=== PATIENT | male | born 1970 | race African-American/Black ===

== ENCOUNTER 2016-11-03 13:21 | Inpatient (IN) | payer MEDICARE, MEDICAID ==
[~2016-11-03] VITALS: Ht 170.2 cm; Wt 104.3 kg
[~2016-11-03 13:21] MED LIST: ALPR0.2582 PO; CALC0.253 PO; CINA30 PO; DIPH25CA83 PO; FOLI-43 PO; GABA-529 PO; METH500T PO; OMEP20CA10 PO; ROPI0.5T PO; SEVE800T8 PO; ZOLP5TAB8 PO; [UNRECOGNIZED DRUG - OTHER]
[2016-11-03 14:42] LABS: BASOPHILS % 0.5 % (0.0-2.0); EOSINOPHILS % 0.1 % (0.0-5.0); HEMATOCRIT. 48.5 % (42.0-52.0); HEMOGLOBIN. 15.4 g/dL (14.0-18.0); LYMPHOCYTES % 10.1 % (20.0-50.0); MEAN CORPUSCULAR HEMOGLOBIN 26.3 pg (28.0-32.0); MEAN CORPUSCULAR VOLUME 82.4 fL (80.0-94.0); MEAN PLATELET VOLUME 9.6 fl (7.4-10.4); MONOCYTES % 9.4 % (2.0-8.0); NEUTROPHILS % 79.9 % (40.0-76.0); PLATELET 154 x1000/uL (130-400); RED BLOOD CELL COUNT 5.88 mill/uL (4.7-6.1); RED CELL DISTRIBUTION WIDTH 15.5 % (11.6-14.6)
[2016-11-03 14:51] LABS: INR 1.1; PROTHROMBIN TIME 11.5 sec
[2016-11-03 15:00] LABS: CARBON DIOXIDE 25 mEq/L (21-32); CHLORIDE 99 mEq/L (98-107); TROPONIN I < 0.02 ng/mL (0.00-0.04)
[2016-11-03] MEDS ORDERED: SODIUM CHLORIDE 0.9% 500 ML IV NR (16:12)
[2016-11-03] MEDS ORDERED: VANCOMYCIN 1,500 MG in DEXT 5% WATER 250 ML IV ONE (16:45)
[2016-11-03] MEDS ORDERED: PIPERACILLIN SODIUM/TAZOBACTAM 4.5 G in DEXT 5% WATER 100 ML IV SCH (16:45)
[2016-11-03] MEDS ORDERED: LORAZEPAM 2MG/ML CPJ IV ONE (20:15)
[2016-11-03] MEDS ORDERED: ONDANSETRON HCL 4MG/2ML VIAL IV PRN (20:45)
[2016-11-03] MEDS ORDERED: DOCUSATE SODIUM 100MG CAPSULE PO PRN (20:45)
[2016-11-03] MEDS ORDERED: CLONIDINE 0.1MG TABLET PO PRN (20:45)
[2016-11-03] MEDS ORDERED: LORAZEPAM 2MG/ML CPJ IV PRN (20:45)
[2016-11-03] MEDS ORDERED: DIPHENHYDRAMINE 50MG/ML VIAL IV PRN (20:45)
[2016-11-03] MEDS ORDERED: ENOXAPARIN 40MG/0.4ML SYR SUBCUT SCH (20:45)
[2016-11-03] MEDS ORDERED: GUAIFENESIN 200MG/10ML SUGAR FREE UDC PO PRN (20:45)
[2016-11-03] MEDS ORDERED: MAGNESIUM/ALUMINUM HYDROXIDE/SIMETHICONE 30ML UDC PO PRN (20:45)
[2016-11-03] MEDS ORDERED: ACETAMINOPHEN 325MG TABLET PO PRN (20:45)
[2016-11-03] MEDS ORDERED: IPRATROPIUM/ALBUTEROL 0.5-3(2.5)MG/3ML NEB INH PRN (20:45)
[2016-11-03] MEDS ORDERED: NA PHOS,M-B/NA PHOS,DI-BA ENEMA 118ML PR PRN (20:45)
[2016-11-03] MEDS ORDERED: HYDROMORPHONE HCL/PF 2MG/ML CPJ IV PRN (20:45)
[2016-11-03 22:17] LABS: CHLORIDE 101 mEq/L (98-107)
[2016-11-03 22:24] LABS: CARBON DIOXIDE 23 mEq/L (21-32)
[2016-11-03 22:26] LABS: TROPONIN I < 0.02 ng/mL (0.00-0.04)
[2016-11-03] MEDS ORDERED: SODIUM CHLORIDE 0.9% 1,000 ML IV ONE (23:00)
[2016-11-04] VITALS (7 sets, daily range): BP systolic 87–135; BP diastolic 41–86
[2016-11-04] MEDS: HYDROCODONE/ACETAMINOPHEN 5/325MG TABLET PO PRN (02:56)
[2016-11-04] MEDS: OMEPRAZOLE 20MG CAPSULE EXTENDED RELEASE PO SCH (06:22)
[2016-11-04] MEDS: CALCITRIOL 0.25MCG CAPSULE PO SCH (06:22)
[2016-11-04] MEDS: FOLIC ACID 1MG TABLET PO SCH (06:22)
[2016-11-04 06:33] LABS: HEMATOCRIT. 45.1 % (42.0-52.0); HEMOGLOBIN. 14.6 g/dL (14.0-18.0); MEAN CORPUSCULAR HEMOGLOBIN 26.9 pg (28.0-32.0); MEAN CORPUSCULAR VOLUME 82.9 fL (80.0-94.0); PLATELET 128 x1000/uL (130-400); RED BLOOD CELL COUNT 5.44 mill/uL (4.7-6.1); RED CELL DISTRIBUTION WIDTH 15.7 % (11.6-14.6)
[2016-11-04 08:00] LABS: CARBON DIOXIDE 23 mEq/L (21-32); CHLORIDE 104 mEq/L (98-107); HDL CHOLESTEROL 39 mg/dL (40-59); LDL CHOLESTEROL 102 mg/dL (5-100); TROPONIN I < 0.02 ng/mL (0.00-0.04)
[2016-11-04] MEDS: SEVELAMER CARBONATE 800 MG TABLET PO SCH ×3 (08:16→17:01)
[2016-11-04] MEDS: ENOXAPARIN 30MG/0.3ML SYR SUBCUT SCH (08:16)
[2016-11-04] MEDS: ASPIRIN 81MG EC TABLET PO SCH (08:16)
[2016-11-04] MEDS: CINACALCET HCL 30MG TABLET PO SCH (08:31)
[2016-11-04 13:53] LABS: PLATELET ESTIMATE NORMAL
[2016-11-04 16:52] LABS: CREATINE KINASE 34 IU/L (39-308); CREATINE KINASE MB FRACTION 0.6 ng/mL (0.5-3.6); HDL CHOLESTEROL 40 mg/dL (40-59); LDL CHOLESTEROL 100 mg/dL (5-100); TROPONIN I < 0.02 ng/mL (0.00-0.04)
[2016-11-04] MEDS ORDERED: GABAPENTIN 100MG CAPSULE PO SCH (21:00)
[2016-11-05] VITALS (8 sets, daily range): BP systolic 90–130; BP diastolic 26–69
[2016-11-05 01:18] LABS: CREATINE KINASE 25 IU/L (39-308); CREATINE KINASE MB FRACTION < 0.5 ng/mL (0.5-3.6); TROPONIN I < 0.02 ng/mL (0.00-0.04)
[2016-11-05] MEDS: CALCITRIOL 0.25MCG CAPSULE PO SCH (06:27)
[2016-11-05] MEDS: FOLIC ACID 1MG TABLET PO SCH (06:27)
[2016-11-05] MEDS: OMEPRAZOLE 20MG CAPSULE EXTENDED RELEASE PO SCH (06:27)
[2016-11-05] MEDS: ASPIRIN 81MG EC TABLET PO SCH (08:31)
[2016-11-05] MEDS: CINACALCET HCL 30MG TABLET PO SCH (08:31)
[2016-11-05] MEDS: SEVELAMER CARBONATE 800 MG TABLET PO SCH ×2 (08:32→13:34)
[2016-11-05] MEDS: ENOXAPARIN 30MG/0.3ML SYR SUBCUT SCH (08:34)
[2016-11-05] MEDS: HYDROCODONE/ACETAMINOPHEN 5/325MG TABLET PO PRN (08:35)
[2016-11-05 09:46] LABS: BASOPHILS % 0.8 % (0.0-2.0); EOSINOPHILS % 1.8 % (0.0-5.0); HEMATOCRIT. 42.4 % (42.0-52.0); HEMOGLOBIN. 13.4 g/dL (14.0-18.0); LYMPHOCYTES % 30.9 % (20.0-50.0); MEAN CORPUSCULAR HEMOGLOBIN 26.4 pg (28.0-32.0); MEAN CORPUSCULAR VOLUME 83.3 fL (80.0-94.0); MEAN PLATELET VOLUME 10.8 fl (7.4-10.4); MONOCYTES % 11.2 % (2.0-8.0); NEUTROPHILS % 55.3 % (40.0-76.0); PLATELET 157 x1000/uL (130-400); RED BLOOD CELL COUNT 5.08 mill/uL (4.7-6.1); RED CELL DISTRIBUTION WIDTH 15.7 % (11.6-14.6)
[2016-11-05 10:26] LABS: CARBON DIOXIDE 23 mEq/L (21-32); CHLORIDE 106 mEq/L (98-107); CREATINE KINASE 27 IU/L (39-308); CREATINE KINASE MB FRACTION 0.8 ng/mL (0.5-3.6); TROPONIN I < 0.02 ng/mL (0.00-0.04)
== END 2016-11-05 15:40 | disposition home or self-care (01) | DRG 70 ==
LOC: ER 13:21 → 6WST 17:57 → ENRESERV 20:49
PROVIDERS: ADMIT Internal Medicine; ATTEND Internal Medicine
DX: G93.41 Metabolic encephalopathy (principal); N18.6 End stage renal disease; I12.0 Hypertensive chronic kidney disease with stage 5 chronic kidney disease or end stage renal disease; E87.2 Acidosis; D64.9 Anemia, unspecified; E16.2 Hypoglycemia, unspecified; I25.10 Atherosclerotic heart disease of native coronary artery without angina pectoris; W19.XXXA Unspecified fall, initial encounter; M19.90 Unspecified osteoarthritis, unspecified site; G89.29 Other chronic pain; M54.9 Dorsalgia, unspecified; G62.9 Polyneuropathy, unspecified; I95.9 Hypotension, unspecified; Y92.009 Unspecified place in unspecified non-institutional (private) residence as the place of occurrence of the external cause; Z99.2 Dependence on renal dialysis
CPT/HCPCS: 36415; 70450; 71010; 80048; 80053; 80061; 82550; 82553; 82962; 83036; 83605; 83880; 83970; 84439; 84443; 84484; 85025; 85379; 85610; 87040; 93005; 93306; 96374; 97162; 99291; J1650; J2060; J2543; J3370; J7030; J7060

== ENCOUNTER 2016-11-15 05:37 | Emergency (ER) | payer MEDICARE, MEDICAID ==
[~2016-11-15] VITALS: Ht 172.7 cm; Wt 100.0 kg
[2016-11-15] MEDS ORDERED: HYDROCODONE/ACETAMINOPHEN 5/325MG TABLET PO ONE (06:30)
[2016-11-15 09:34] VITALS: BP 118/72
[2016-11-15 09:47] LABS: BASOPHILS % 1.1 % (0.0-2.0); EOSINOPHILS % 4.2 % (0.0-5.0); HEMATOCRIT. 38.3 % (42.0-52.0); HEMOGLOBIN. 12.1 g/dL (14.0-18.0); LYMPHOCYTES % 31.6 % (20.0-50.0); MEAN CORPUSCULAR HEMOGLOBIN 26.4 pg (28.0-32.0); MEAN CORPUSCULAR VOLUME 83.6 fL (80.0-94.0); MEAN PLATELET VOLUME 9.6 fl (7.4-10.4); MONOCYTES % 9.8 % (2.0-8.0); NEUTROPHILS % 53.3 % (40.0-76.0); PLATELET 124 x1000/uL (130-400); RED BLOOD CELL COUNT 4.58 mill/uL (4.7-6.1); RED CELL DISTRIBUTION WIDTH 16.1 % (11.6-14.6)
[2016-11-15 09:50] LABS: PARTIAL THROMBOPLASTIN TIME 29.5 sec (24.0-34.0); PROTHROMBIN TIME 10.9 sec
[2016-11-15 09:53] LABS: C REACTIVE PROTEIN QUANT 3.7 mg/L (0.0-3.0); PHOSPHORUS 5.3 mg/dL (2.5-4.9)
== END 2016-11-15 10:57 | disposition left against medical advice (07) ==
LOC: ER 05:44
DX: N17.9 Acute kidney failure, unspecified (principal); I12.9 Hypertensive chronic kidney disease with stage 1 through stage 4 chronic kidney disease, or unspecified chronic kidney disease; N18.9 Chronic kidney disease, unspecified; M19.90 Unspecified osteoarthritis, unspecified site; D64.9 Anemia, unspecified; E78.5 Hyperlipidemia, unspecified; Z99.2 Dependence on renal dialysis
CPT/HCPCS: 36415; 72131; 80048; 83735; 84100; 85025; 85610; 85651; 85730; 86140; 99285

== ENCOUNTER 2017-02-28 07:56 | Emergency (ER) | payer MEDICARE, MEDICAID ==
[~2017-02-28] VITALS: Ht 177.8 cm; Wt 128.0 kg
[~2017-02-28 07:56] MED LIST changes: +ALPR0.25 PO; -ALPR0.2582 PO
[2017-02-28 08:51] LABS: BASOPHILS % 0.3 % (0.0-2.0); EOSINOPHILS % 0.1 % (0.0-5.0); HEMATOCRIT. 38.4 % (42.0-52.0); HEMOGLOBIN. 12.7 g/dL (14.0-18.0); LYMPHOCYTES % 8.1 % (20.0-50.0); MEAN CORPUSCULAR HEMOGLOBIN 27.9 pg (28.0-32.0); MEAN CORPUSCULAR VOLUME 84.8 fL (80.0-94.0); MEAN PLATELET VOLUME 8.6 fl (7.4-10.4); MONOCYTES % 8.9 % (2.0-8.0); NEUTROPHILS % 82.6 % (40.0-76.0); PLATELET 206 x1000/uL (130-400); RED BLOOD CELL COUNT 4.53 mill/uL (4.7-6.1); RED CELL DISTRIBUTION WIDTH 15.1 % (11.6-14.6)
[2017-02-28 09:02] LABS: CARBON DIOXIDE 21 mEq/L (21-32); CHLORIDE 95 mEq/L (98-107)
[2017-02-28 11:28] VITALS: BP 130/60
== END 2017-02-28 11:28 | disposition home or self-care (01) ==
LOC: ER 08:10
DX: S00.03XA Contusion of scalp, initial encounter (principal); R56.9 Unspecified convulsions; I12.0 Hypertensive chronic kidney disease with stage 5 chronic kidney disease or end stage renal disease; N18.6 End stage renal disease; E87.2 Acidosis; F41.9 Anxiety disorder, unspecified; Z99.2 Dependence on renal dialysis
CPT/HCPCS: 36415; 70450; 80053; 82962; 85025; 99291

== ENCOUNTER 2017-07-02 04:15 | Inpatient (IN) | payer MEDICARE, MEDICAID ==
[2017-07-02] VITALS (10 sets, daily range): BP systolic 105–136; BP diastolic 53–81
[~2017-07-02] VITALS: Ht 167.6 cm; Wt 120.7 kg
[2017-07-02 05:30] LABS: BASOPHILS % 0.6 % (0.0-2.0); EOSINOPHILS % 3.6 % (0.0-5.0); HEMATOCRIT. 35.4 % (42.0-52.0); HEMOGLOBIN. 11.5 g/dL (14.0-18.0); LYMPHOCYTES % 31.9 % (20.0-50.0); MEAN CORPUSCULAR HEMOGLOBIN 28.3 pg (28.0-32.0); MEAN CORPUSCULAR VOLUME 87.2 fL (80.0-94.0); MEAN PLATELET VOLUME 10.5 fl (7.4-10.4); MONOCYTES % 7.3 % (2.0-8.0); NEUTROPHILS % 56.6 % (40.0-76.0); PLATELET 182 x1000/uL (130-400); RED BLOOD CELL COUNT 4.06 mill/uL (4.7-6.1); RED CELL DISTRIBUTION WIDTH 15.9 % (11.6-14.6)
[2017-07-02 05:35] LABS: PROTHROMBIN TIME 10.7 sec (9.4-11.6)
[2017-07-02 05:39] LABS: CHLORIDE 104 mEq/L (98-107)
[2017-07-02] MEDS ORDERED: INSULIN REGULAR (HUMULIN R) 300UNITS/3ML IV ONE (06:30)
[2017-07-02] MEDS ORDERED: SODIUM BICARBONATE 8.4% 1 MEQ/ML 50ML SYR IV ONE (06:30)
[2017-07-02] MEDS ORDERED: CALCIUM GLUCONATE 100MG/ML 10ML VIAL IV ONE (06:30)
[2017-07-02] MEDS ORDERED: DEXTROSE 50% WATER 50ML SYRINGE IV ONE (06:30)
[2017-07-02] MEDS ORDERED: NA PHOS,M-B/NA PHOS,DI-BA ENEMA 118ML PR PRN (06:45)
[2017-07-02] MEDS ORDERED: MAGNESIUM/ALUMINUM HYDROXIDE/SIMETHICONE 30ML UDC PO PRN (06:45)
[2017-07-02] MEDS ORDERED: MORPHINE SULFATE 4 MG/ML CPJ (NOT FOR IM USE) IV PRN (06:45)
[2017-07-02] MEDS ORDERED: CALCIUM GLUCONATE 1000MG in DEXTROSE 5% WATER 50ML IV ONE (06:45)
[2017-07-02] MEDS ORDERED: DOCUSATE SODIUM 100MG CAPSULE PO PRN (06:45)
[2017-07-02] MEDS ORDERED: GUAIFENESIN 200MG/10ML SUGAR FREE UDC PO PRN (06:45)
[2017-07-02] MEDS ORDERED: CLONIDINE 0.1MG TABLET PO PRN (06:45)
[2017-07-02] MEDS ORDERED: ACETAMINOPHEN 325MG TABLET PO PRN (06:45)
[2017-07-02] MEDS ORDERED: LORAZEPAM 2MG/ML CPJ IV PRN (06:45)
[2017-07-02] MEDS ORDERED: HYDROCODONE/ACETAMINOPHEN 5/325MG TABLET PO PRN (06:45)
[2017-07-02] MEDS ORDERED: IPRATROPIUM/ALBUTEROL 0.5-3(2.5)MG/3ML NEB INH PRN (06:45)
[2017-07-02] MEDS ORDERED: ONDANSETRON HCL 4MG/2ML VIAL IV PRN (06:45)
[2017-07-02] MEDS ORDERED: ENOXAPARIN 40MG/0.4ML SYR SUBCUT SCH (09:39)
[2017-07-02] MEDS ORDERED: SODIUM BICARBONATE 4% (2.4MEQ) 5ML VIAL IV ONE (13:17)
[2017-07-02] MEDS ORDERED: LIDOCAINE HCL 1% 20ML VIAL (Pyxis) INJ ONE (13:17)
[2017-07-02 13:23] LABS: T4 FREE 0.72 ng/dL (0.76-1.46)
[2017-07-02] MEDS ORDERED: CEFAZOLIN 1000MG PREMIX 50 ML IV ONE ×2 (13:40→13:45)
[2017-07-02] MEDS ORDERED: FENTANYL CITRATE/PF 50MCG/ML 2ML VIAL IV ONE (13:45)
[2017-07-02] MEDS ORDERED: FENTANYL CITRATE/PF 50MCG/ML 2ML VIAL ONE (13:58)
[2017-07-02] MEDS ORDERED: HEPARIN SODIUM 1,000 UNIT/1ML VIAL IV NR (15:45)
[2017-07-02] MEDS: DIPHENHYDRAMINE 50MG/ML VIAL IV PRN (16:06)
[2017-07-02 16:55] LABS: CHLORIDE 104 mEq/L (98-107)
[2017-07-02 17:00] LABS: CREATINE KINASE 31 IU/L (39-308); CREATINE KINASE MB FRACTION 0.8 ng/mL (0.5-3.6)
[2017-07-02] MEDS ORDERED: ZOLPIDEM TARTRATE 5MG TABLET PO PRN (20:00)
[2017-07-02] MEDS ORDERED: DIPHENHYDRAMINE 25MG CAPSULE PO PRN (20:00)
[2017-07-02] MEDS ORDERED: DOCUSATE SODIUM 250MG CAPSULE PO PRN (20:00)
[2017-07-02] MEDS ORDERED: OMEP40CA34 PO (20:08)
[2017-07-02] MEDS ORDERED: FOLI-43 PO (20:08)
[2017-07-02] MEDS ORDERED: GABA-529 PO (20:08)
[2017-07-02] MEDS ORDERED: DOCU250C87 PO (20:08)
[2017-07-02] MEDS ORDERED: DIPH25CA83 PO (20:08)
[2017-07-02] MEDS ORDERED: ASPI-1159 PO (20:08)
[2017-07-02] MEDS ORDERED: OXYC5CAP12 PO (20:08)
[2017-07-02] MEDS ORDERED: ZOLP5TAB8 PO (20:30)
[2017-07-02] MEDS ORDERED: CINA60 PO (20:30)
[2017-07-02] MEDS ORDERED: MIDO5TAB PO (20:30)
[2017-07-02] MEDS ORDERED: SEVE800T8 PO (20:30)
[2017-07-02] MEDS ORDERED: METH500T PO (20:30)
[2017-07-02] MEDS ORDERED: KEPP500 PO (20:30)
[2017-07-02] MEDS ORDERED: IBUP-2028 PO (20:30)
[2017-07-02] MEDS ORDERED: REQ1 PO (20:30)
[2017-07-02] MEDS ORDERED: IBUP-2029 PO (20:33)
[2017-07-02] MEDS ORDERED: FAMOTIDINE 20MG TABLET PO SCH (21:00)
[2017-07-02] MEDS: LEVETIRACETAM 500MG TABLET PO SCH (21:18)
[2017-07-02] MEDS: FOLIC ACID 1MG TABLET PO SCH (21:18)
[2017-07-02] MEDS: CINACALCET HCL 60MG TABLET PO SCH (21:18)
[2017-07-03] VITALS (8 sets, daily range): BP systolic 83–121; BP diastolic 20–68
[2017-07-03 00:41] LABS: CREATINE KINASE 20 IU/L (39-308); CREATINE KINASE MB FRACTION 0.6 ng/mL (0.5-3.6)
[2017-07-03 06:33] LABS: BASOPHILS % 0.8 % (0.0-2.0); EOSINOPHILS % 4.2 % (0.0-5.0); HEMATOCRIT. 30.1 % (42.0-52.0); HEMOGLOBIN. 9.8 g/dL (14.0-18.0); LYMPHOCYTES % 29.5 % (20.0-50.0); MEAN CORPUSCULAR HEMOGLOBIN 28.2 pg (28.0-32.0); MEAN CORPUSCULAR VOLUME 86.7 fL (80.0-94.0); MEAN PLATELET VOLUME 10.4 fl (7.4-10.4); MONOCYTES % 9.3 % (2.0-8.0); NEUTROPHILS % 56.2 % (40.0-76.0); PLATELET 144 x1000/uL (130-400); RED BLOOD CELL COUNT 3.47 mill/uL (4.7-6.1); RED CELL DISTRIBUTION WIDTH 15.9 % (11.6-14.6)
[2017-07-03 07:13] LABS: CHLORIDE 103 mEq/L (98-107)
[2017-07-03 07:22] LABS: CREATINE KINASE 13 IU/L (39-308); CREATINE KINASE MB FRACTION 0.6 ng/mL (0.5-3.6); HDL CHOLESTEROL 45 mg/dL (40-59); LDL CHOLESTEROL 64 mg/dL (5-100); PHOSPHORUS 6.5 mg/dL (2.5-4.9)
[2017-07-03] MEDS ORDERED: SEVELAMER CARBONATE 800 MG TABLET PO SCH (07:40)
[2017-07-03] MEDS ORDERED: SODIUM POLYSTYRENE SULFONATE 15 G/60 ML BOT PO NR (08:06)
[2017-07-03] MEDS: SEVELAMER CARBONATE 800 MG TABLET PO SCH ×2 (08:34→18:12)
[2017-07-03] MEDS: MIDODRINE HCL 5MG TABLET PO SCH ×2 (08:36→16:05)
[2017-07-03] MEDS ORDERED: MEDICATION NOT ON FORMULARY EA (Omeprazole 40 MG) PO SCH (09:00)
[2017-07-03] MEDS ORDERED: ASPIRIN 81MG EC TABLET PO SCH (09:00)
[2017-07-03] MEDS ORDERED: ROPINIROLE HCL 1MG TABLET PO SCH (09:00)
[2017-07-03] MEDS ORDERED: HEPARIN SODIUM 1,000 UNIT/1ML VIAL IV NR (09:15)
[2017-07-03] MEDS ORDERED: HEPARIN SODIUM 1,000 UNIT/1ML VIAL IV ONE (09:15)
[2017-07-03] MEDS: LEVETIRACETAM 500MG TABLET PO SCH ×2 (09:43→16:04)
[2017-07-03] MEDS: FOLIC ACID 1MG TABLET PO SCH (09:43)
[2017-07-03] MEDS: CINACALCET HCL 60MG TABLET PO SCH (09:44)
[2017-07-03] MEDS: GABAPENTIN 100MG CAPSULE PO SCH ×2 (09:44→16:04)
[2017-07-03] MEDS: METHOCARBAMOL 500MG TABLET PO SCH ×2 (09:45→18:12)
[2017-07-03] MEDS: DIPHENHYDRAMINE 50MG/ML VIAL IV PRN (09:45)
[2017-07-03] MEDS ORDERED: ENOXAPARIN 40MG/0.4ML SYR SUBCUT SCH (16:00)
== END 2017-07-03 20:15 | DRG 314 ==
LOC: ER 04:31 → ENRESERV 08:02 → 8WST 09:23
PROVIDERS: ADMIT Internal Medicine; ATTEND Internal Medicine
PROC: 06H033Z Insertion of Infusion Device into Inferior Vena Cava, Percutaneous Approach (ICD-10-PCS; principal; 2017-07-02)
PROC: B5191ZA Fluoroscopy of Inferior Vena Cava using Low Osmolar Contrast, Guidance (ICD-10-PCS; 2017-07-02)
DX: T82.42XA Displacement of vascular dialysis catheter, initial encounter (principal); N18.6 End stage renal disease; I13.2 Hypertensive heart and chronic kidney disease with heart failure and with stage 5 chronic kidney disease, or end stage renal disease; E46 Unspecified protein-calorie malnutrition; E11.51 Type 2 diabetes mellitus with diabetic peripheral angiopathy without gangrene; E11.22 Type 2 diabetes mellitus with diabetic chronic kidney disease; Z68.41 Body mass index [BMI] 40.0-44.9, adult; D63.8 Anemia in other chronic diseases classified elsewhere; I50.9 Heart failure, unspecified; E87.5 Hyperkalemia; G89.29 Other chronic pain; E66.9 Obesity, unspecified; M54.5 Low back pain; Y83.8 Other surgical procedures as the cause of abnormal reaction of the patient, or of later complication, without mention of misadventure at the time of the procedure; Z79.899 Other long term (current) drug therapy; Z79.82 Long term (current) use of aspirin; Z99.2 Dependence on renal dialysis; Y92.89 Other specified places as the place of occurrence of the external cause
CPT/HCPCS: 36415; 36581; 77001; 80048; 80053; 80061; 82550; 82553; 82962; 83036; 83880; 84100; 84439; 84443; 84484; 85025; 85379; 85610; 93005; 93306; 96374; 96375; 99285; C1750; C1769; J0610; J0690; J1200; J1642; J1644; J1650; J1815; J3010; J3490; J7030; J7040; J7060

== ENCOUNTER 2020-07-13 13:05 | Inpatient (IN) | payer MEDICARE, MEDICAID ==
[~2020-07-13] VITALS: Ht 170.2 cm; Wt 128.8 kg
[~2020-07-13 13:05] MED LIST changes: -ALPR0.25 PO; +ASPI-1497 PO; -CALC0.253 PO; -CINA30 PO; +CINA60 PO; +DOCU250C21 PO; +IBUP-2029 PO; +KEPP500 PO; +MIDO5TAB4 PO; -OMEP20CA10 PO; +OMEP40CA12 PO; +OXYC5CAP19 PO; +REQ1 PO; -ROPI0.5T PO; -[UNRECOGNIZED DRUG - OTHER]
[2020-07-13] MEDS ORDERED: CLINDAMYCIN 600 MG in DEXTROSE 5% WATER 50 ML IV ONE (13:30)
[2020-07-13] MEDS ORDERED: VANCOMYCIN 1 G PREMIX 200 ML IV ONE (13:30)
[2020-07-13] MEDS ORDERED: PIPERACILLIN/TAZ 3.375G PREMIX 50 ML IV ONE (13:30)
[2020-07-13] MEDS ORDERED: SODIUM CHLORIDE 0.9% 1,000 ML IV ONE (13:30)
[2020-07-13] MEDS ORDERED: CLINDAMYCIN 600MG PREMIX 50 ML IV SCH (13:45)
[2020-07-13 14:25] LABS: HEMATOCRIT. 30.4 % (42.0-52.0); HEMOGLOBIN. 9.8 g/dL (14.0-18.0); MEAN CORPUSCULAR HEMOGLOBIN 25.4 pg (28.0-32.0); MEAN CORPUSCULAR VOLUME 78.9 fL (80.0-94.0); PLATELET 165 x1000/uL (130-400); RED BLOOD CELL COUNT 3.85 mill/uL (4.7-6.1); RED CELL DISTRIBUTION WIDTH 18.2 % (11.6-14.6)
[2020-07-13 14:33] LABS: CHLORIDE 92 mEq/L (98-107)
[2020-07-13 14:35] LABS: INR 1.2
[2020-07-13 14:45] LABS: PLATELET ESTIMATE NORMAL
[2020-07-13] MEDS ORDERED: CLONIDINE 0.1MG TABLET PO PRN (17:45)
[2020-07-13] MEDS ORDERED: VANCOMYCIN 1 G PREMIX 200 ML IV NR ×2 (18:00→20:00)
[2020-07-13] MEDS ORDERED: PIPERACILLIN/TAZOBACTAM 3.375 G in DEXTROSE 5% WATER 50 ML IV SCH (18:00)
[2020-07-13] MEDS: HEPARIN 5000 UNITS/ML VIAL SUBCUT SCH (21:00)
[2020-07-13 21:55] VITALS: BP 149/96
[2020-07-13] MEDS ORDERED: CEFEPIME 2,000 MG in DEXT 5% WATER 100 ML IV SCH (22:00)
[2020-07-13] MEDS ORDERED: PIPERACILLIN/TAZOBACTAM 2.25 G in DEXTROSE 5% WATER 50 ML IV SCH (22:00)
[2020-07-13] MEDS ORDERED: HYDROCODONE/ACETAMINOPHEN 5/325MG TABLET PO PRN (22:45)
[2020-07-13] MEDS ORDERED: TRAMADOL 50MG TABLET PO PRN (22:45)
[2020-07-14] VITALS: BP 150/94
[2020-07-14 04:00] VITALS: BP 71/52
[2020-07-14] MEDS: GABAPENTIN 300MG CAPSULE PO SCH ×3 (05:07→21:12)
[2020-07-14] MEDS ORDERED: HYDROCODONE/ACETAMINOPHEN 5/325MG TABLET PO PRN (05:45)
[2020-07-14] MEDS ORDERED: TRAMADOL 50MG TABLET PO PRN ×2 (05:45→07:00)
[2020-07-14] MEDS ORDERED: MIDODRINE HCL 5MG TABLET PO SCH (06:00)
[2020-07-14 07:01] LABS: CHLORIDE 93 mEq/L (98-107)
[2020-07-14 07:05] LABS: BASOPHILS % 0.1 % (0.0-2.0); EOSINOPHILS % 0.6 % (0.0-5.0); HEMATOCRIT. 27.9 % (42.0-52.0); LYMPHOCYTES % 16.4 % (20.0-50.0); MEAN CORPUSCULAR HEMOGLOBIN 25.6 pg (28.0-32.0); MEAN CORPUSCULAR VOLUME 79.6 fL (80.0-94.0); MEAN PLATELET VOLUME 10.8 fl (7.4-10.4); NEUTROPHILS % 70.9 % (40.0-76.0); PLATELET 153 x1000/uL (130-400); RED CELL DISTRIBUTION WIDTH 18.5 % (11.6-14.6)
[2020-07-14 08:00] VITALS: BP 66/29
[2020-07-14] MEDS: HEPARIN 5000 UNITS/ML VIAL SUBCUT SCH ×2 (09:14→21:00)
[2020-07-14] MEDS ORDERED: VANCOMYCIN 1500MG in DEXTROSE 5% WATER 250ML IV SCH (10:00)
[2020-07-14] MEDS: SODIUM HYPOCHLORITE 0.125% 473ML SOLUTION TOP SCH ×2 (11:00→17:17)
[2020-07-14 12:00] VITALS: BP 71/26
[2020-07-14] MEDS ORDERED: BUPIVACAINE HCL/PF 0.5% (5MG/ML) 10ML ONE (14:27)
[2020-07-14] MEDS ORDERED: VANCOMYCIN HCL 1 GM/VIAL ONE (14:27)
[2020-07-14] MEDS ORDERED: LIDOCAINE HCL 1% 20ML VIAL (Pyxis) INJ ONE (14:27)
[2020-07-14] MEDS ORDERED: BACITRACIN 50,000 UNITS/VIAL ONE (14:28)
[2020-07-14] MEDS: MIDODRINE HCL 5MG TABLET PO SCH ×2 (15:12→21:10)
[2020-07-14] MEDS ORDERED: ALBUMIN HUMAN 25GM/500ML (5%) IV NR (15:30)
[2020-07-14 16:00] VITALS: BP 79/43
[2020-07-14] MEDS ORDERED: ALBUMIN HUMAN 25GM/100ML (25%) IV NR (16:00)
[2020-07-14 20:00] VITALS: BP 111/79
[2020-07-14] MEDS: EPOETIN ALFA-EPBX 10,000 UNIT/ML VIAL SUBCUT SCH (21:11)
[2020-07-14] MEDS: CEFEPIME 2,000 MG in DEXT 5% WATER 100 ML IV SCH (21:11)
[2020-07-14] MEDS: DIPHENHYDRAMINE 50MG/ML VIAL IV PRN (21:16)
[2020-07-14] MEDS: LEVETIRACETAM 500MG TABLET PO SCH (21:25)
[2020-07-14] MEDS ORDERED: HEPARIN SODIUM 1,000 UNIT/1ML VIAL IV NR (21:30)
[2020-07-15] VITALS (44 sets, daily range): BP systolic 0–192; BP diastolic 0–187
[2020-07-15] MEDS: ACETAMINOPHEN 325MG TABLET PO PRN (01:52)
[2020-07-15] MEDS: MIDODRINE HCL 5MG TABLET PO SCH ×3 (05:44→21:02)
[2020-07-15] MEDS: GABAPENTIN 300MG CAPSULE PO SCH ×3 (05:45→21:01)
[2020-07-15 07:06] LABS: BASOPHILS % 0.2 % (0.0-2.0); EOSINOPHILS % 0.2 % (0.0-5.0); HEMATOCRIT. 30.6 % (42.0-52.0); HEMOGLOBIN. 9.7 g/dL (14.0-18.0); LYMPHOCYTES % 13.5 % (20.0-50.0); MEAN CORPUSCULAR VOLUME 79.2 fL (80.0-94.0); MEAN PLATELET VOLUME 10.7 fl (7.4-10.4); MONOCYTES % 9.6 % (2.0-8.0); NEUTROPHILS % 76.5 % (40.0-76.0); PLATELET 132 x1000/uL (130-400); RED BLOOD CELL COUNT 3.86 mill/uL (4.7-6.1); RED CELL DISTRIBUTION WIDTH 18.2 % (11.6-14.6)
[2020-07-15 07:11] LABS: CHLORIDE 96 mEq/L (98-107)
[2020-07-15 07:25] LABS: PHOSPHORUS 5.8 mg/dL (2.5-4.9)
[2020-07-15] MEDS: HEPARIN 5000 UNITS/ML VIAL SUBCUT SCH ×2 (09:00→21:01)
[2020-07-15] MEDS: SODIUM HYPOCHLORITE 0.125% 473ML SOLUTION TOP SCH ×2 (09:00→17:00)
[2020-07-15 09:21] LABS: INR 1.4; PARTIAL THROMBOPLASTIN TIME 42.7 sec (23.4-31.0); PROTHROMBIN TIME 14.5 sec (9.6-11.0)
[2020-07-15] MEDS: CINACALCET HCL 60MG TABLET PO SCH (09:22)
[2020-07-15] MEDS: FOLIC ACID/VITAMIN B COMP W-C TABLET PO SCH (09:22)
[2020-07-15] MEDS: LEVETIRACETAM 500MG TABLET PO SCH ×2 (09:22→21:00)
[2020-07-15] MEDS ORDERED: LIDOCAINE HCL 1% 20ML VIAL (Pyxis) INJ ONE ×4 (10:46→13:43)
[2020-07-15] MEDS ORDERED: VANCOMYCIN HCL 1 GM/VIAL ONE ×2 (10:47→12:54)
[2020-07-15] MEDS ORDERED: BACITRACIN 50,000 UNITS/VIAL ONE ×2 (10:47→11:47)
[2020-07-15] MEDS ORDERED: BUPIVACAINE HCL/PF 0.5% (5MG/ML) 10ML ONE ×2 (10:47→11:47)
[2020-07-15] MEDS ORDERED: ACETAMINOPHEN 500MG TABLET ONE (12:09)
[2020-07-15] MEDS ORDERED: PROPOFOL 200MG/20ML VIAL IV ONE (12:10)
[2020-07-15] MEDS ORDERED: HYDROMORPHONE HCL/PF 2MG/ML (OR) ONE (12:12)
[2020-07-15] MEDS ORDERED: ALBUMIN HUMAN 12.5G/250ML (5%) IV ONE ×4 (12:27→13:01)
[2020-07-15] MEDS ORDERED: KETAMINE HCL 50 MG/ML 10ML ONE (12:30)
[2020-07-15] MEDS ORDERED: ALBUMIN HUMAN 25GM/100ML (25%) IV ONE ×2 (12:39→12:46)
[2020-07-15] MEDS ORDERED: VASOPRESSIN 20 UNIT/ML 1ML ONE (12:54)
[2020-07-15] MEDS ORDERED: HYDROCORTISONE SOD SUCCINATE 100 MG/2 ML VIAL ONE (13:18)
[2020-07-15] MEDS ORDERED: EPINEPHRINE 0.1MG/ML (1:10,000) 10ML SYR ONE (13:30)
[2020-07-15 14:38] LABS: HEMATOCRIT. 28.7 % (42.0-52.0); HEMOGLOBIN. 9.2 g/dL (14.0-18.0); MEAN CORPUSCULAR HEMOGLOBIN 25.3 pg (28.0-32.0); MEAN CORPUSCULAR VOLUME 78.9 fL (80.0-94.0); MEAN PLATELET VOLUME 10.5 fl (7.4-10.4); RED BLOOD CELL COUNT 3.63 mill/uL (4.7-6.1); RED CELL DISTRIBUTION WIDTH 18.1 % (11.6-14.6)
[2020-07-15] MEDS ORDERED: SODIUM BICARBONATE 8.4% 1 MEQ/ML 50ML SYR IV ONE ×2 (14:45→15:16)
[2020-07-15 14:51] LABS: PLATELET ESTIMATE NORMAL
[2020-07-15 14:53] LABS: PLATELET 130 x1000/uL (130-400)
[2020-07-15 15:03] LABS: BG BASE EXCESS -12.5 mmol/L (-2.0-2.0); BG CARBOXYHEMOGLOBIN 0.1 % (0.5-1.5); BG DEOXYHEMOGLOBIN 0.4 % (0.0-5.0); BG FRACTION INSPIRED OXYGEN 100; BG HCO3 ACT 14.9 mmol/L (22.0-26.0); BG METHEMOGLOBIN 0.2 % (0.0-1.5); BG OXYGEN SATURATION 99.6 % (92.0-98.5); BG OXYHEMOGLOBIN 99.3 % (94.0-97.0); BG PCO2 39.9 mmHg (35.0-45.0); BG PH 7.191 (7.350-7.450); BG PO2 295.6 mmHg (75.0-100.0); BG SAMPLE SITE ALINE; BG TOTAL HEMOGLOBIN 10.5 g/dL (12.0-18.0); BG VENT MODE MASK - NRB
[2020-07-15] MEDS: NOREPINEPHRINE 8 MG in DEXTROSE 5% WATER 250 ML IV PRN ×2 (16:00→18:27)
[2020-07-15] MEDS ORDERED: CALCIUM CHLORIDE 1GM/10ML SYR IV ONE (16:14)
[2020-07-15] MEDS ORDERED: DEXAMETHASONE 4MG/ML 1ML VIAL ONE (16:14)
[2020-07-15 16:15] LABS: BG BASE EXCESS -10.4 mmol/L (-2.0-2.0); BG CARBOXYHEMOGLOBIN 0.2 % (0.5-1.5); BG DEOXYHEMOGLOBIN 0.2 % (0.0-5.0); BG FRACTION INSPIRED OXYGEN 100; BG HCO3 ACT 15.8 mmol/L (22.0-26.0); BG METHEMOGLOBIN 0.2 % (0.0-1.5); BG OXYGEN SATURATION 99.8 % (92.0-98.5); BG OXYHEMOGLOBIN 99.4 % (94.0-97.0); BG PCO2 35.7 mmHg (35.0-45.0); BG PH 7.263 (7.350-7.450); BG PO2 357.8 mmHg (75.0-100.0); BG SAMPLE SITE ALINE; BG TOTAL HEMOGLOBIN 11.4 g/dL (12.0-18.0); BG VENT MODE MASK - NRB
[2020-07-15] MEDS ORDERED: SODIUM CHLORIDE 0.9% 10ML VIAL ONE (16:15)
[2020-07-15] MEDS ORDERED: CEFAZOLIN SODIUM 1000MG/VIAL ONE (16:15)
[2020-07-15] MEDS ORDERED: PHENYLEPHRINE HCL 10 MG/ML 1ML (IV VIAL) IV ONE (16:15)
[2020-07-15] MEDS ORDERED: SODIUM BICARBONATE 8.4% 1 MEQ/ML 50ML SYR IV NR (17:00)
[2020-07-15 20:22] LABS: BG BASE EXCESS -8.7 mmol/L (-2.0-2.0); BG CARBOXYHEMOGLOBIN 0.1 % (0.5-1.5); BG DEOXYHEMOGLOBIN 1.5 % (0.0-5.0); BG FRACTION INSPIRED OXYGEN 28; BG HCO3 ACT 16.6 mmol/L (22.0-26.0); BG METHEMOGLOBIN 0.2 % (0.0-1.5); BG OXYGEN SATURATION 98.5 % (92.0-98.5); BG OXYHEMOGLOBIN 98.2 % (94.0-97.0); BG PCO2 33.6 mmHg (35.0-45.0); BG PH 7.311 (7.350-7.450); BG SAMPLE SITE ALINE; BG TOTAL HEMOGLOBIN 11.1 g/dL (12.0-18.0); BG VENT MODE NASAL CANNULA
[2020-07-15] MEDS: ONDANSETRON HCL 4MG/2ML INJ IV PRN (22:04)
[2020-07-15] MEDS: CEFEPIME 2,000 MG in DEXT 5% WATER 100 ML IV SCH (22:04)
[2020-07-16] VITALS (57 sets, daily range): BP systolic 57–160; BP diastolic 29–97
[2020-07-16] MEDS: NOREPINEPHRINE 32 MG in DEXT 5% WATER 218 ML IV PRN (02:07)
[2020-07-16 05:06] LABS: HEMATOCRIT. 32.9 % (42.0-52.0); HEMOGLOBIN. 10.5 g/dL (14.0-18.0); MEAN CORPUSCULAR HEMOGLOBIN 24.9 pg (28.0-32.0); MEAN CORPUSCULAR VOLUME 78.3 fL (80.0-94.0); MEAN PLATELET VOLUME 10.3 fl (7.4-10.4); PLATELET 201 x1000/uL (130-400); RED BLOOD CELL COUNT 4.21 mill/uL (4.7-6.1); RED CELL DISTRIBUTION WIDTH 18.1 % (11.6-14.6)
[2020-07-16 05:41] LABS: CHLORIDE 94 mEq/L (98-107)
[2020-07-16] MEDS: MIDODRINE HCL 5MG TABLET PO SCH ×3 (05:53→22:18)
[2020-07-16] MEDS: GABAPENTIN 300MG CAPSULE PO SCH ×3 (05:53→22:18)
[2020-07-16 06:58] LABS: PLATELET ESTIMATE NORMAL
[2020-07-16] MEDS ORDERED: ALBUMIN HUMAN 25GM/100ML (25%) IV ONE (08:30)
[2020-07-16] MEDS: SODIUM HYPOCHLORITE 0.125% 473ML SOLUTION TOP SCH ×2 (09:00→16:34)
[2020-07-16] MEDS: FOLIC ACID/VITAMIN B COMP W-C TABLET PO SCH (09:49)
[2020-07-16] MEDS: LEVETIRACETAM 500MG TABLET PO SCH ×2 (09:49→20:09)
[2020-07-16] MEDS: CINACALCET HCL 60MG TABLET PO SCH (10:55)
[2020-07-16] MEDS: MORPHINE SULFATE 2 MG/ML CPJ (NOT FOR IM USE) IV PRN (11:10)
[2020-07-16] MEDS ORDERED: ALTEPLASE 2MG/VIAL ITC SCH (13:00)
[2020-07-16 15:30] LABS: INR 1.4; PROTHROMBIN TIME 15.1 sec (9.6-11.0)
[2020-07-16] MEDS: METOCLOPRAMIDE HCL 10MG/2ML VIAL IV SCH (16:41)
[2020-07-16] MEDS ORDERED: VANCOMYCIN 1 G PREMIX 200 ML IV NR (18:00)
[2020-07-16] MEDS ORDERED: ALTEPLASE 2MG/VIAL ITC NR (18:30)
[2020-07-16] MEDS: CEFEPIME 2,000 MG in DEXT 5% WATER 100 ML IV SCH (20:09)
[2020-07-16] MEDS: HEPARIN 5000 UNITS/ML VIAL SUBCUT SCH (22:19)
[2020-07-17] VITALS (75 sets, daily range): BP systolic 55–161; BP diastolic 25–89
[2020-07-17 05:03] LABS: HEMATOCRIT. 40.9 % (42.0-52.0); MEAN CORPUSCULAR HEMOGLOBIN 25.4 pg (28.0-32.0); MEAN PLATELET VOLUME 9.9 fl (7.4-10.4); PLATELET 209 x1000/uL (130-400); RED BLOOD CELL COUNT 5.11 mill/uL (4.7-6.1); RED CELL DISTRIBUTION WIDTH 18.8 % (11.6-14.6)
[2020-07-17 05:10] LABS: CHLORIDE 89 mEq/L (98-107)
[2020-07-17] MEDS: GABAPENTIN 300MG CAPSULE PO SCH ×3 (06:11→20:53)
[2020-07-17] MEDS: METOCLOPRAMIDE HCL 10MG/2ML VIAL IV SCH ×2 (06:11→17:03)
[2020-07-17] MEDS: MIDODRINE HCL 5MG TABLET PO SCH ×3 (06:14→20:53)
[2020-07-17] MEDS: LEVETIRACETAM 500MG TABLET PO SCH ×2 (08:50→20:53)
[2020-07-17] MEDS: PANTOPRAZOLE SODIUM 40 MG/VIAL IV SCH (08:51)
[2020-07-17] MEDS: CINACALCET HCL 60MG TABLET PO SCH (08:51)
[2020-07-17] MEDS: FOLIC ACID/VITAMIN B COMP W-C TABLET PO SCH (08:51)
[2020-07-17] MEDS ORDERED: LIDOCAINE HCL 1% 20ML VIAL (Pyxis) INJ ONE (09:50)
[2020-07-17] MEDS ORDERED: IOHEXOL 350 MG/ML 200ML INFUS..BTL IV ONE (10:00)
[2020-07-17] MEDS ORDERED: ENOXAPARIN 100MG/ML SYR SUBCUT SCH (11:00)
[2020-07-17] MEDS ORDERED: ALBUMIN HUMAN 25GM/100ML (25%) IV NR (11:00)
[2020-07-17 12:26] LABS: PLATELET ESTIMATE NORMAL
[2020-07-17] MEDS: NOREPINEPHRINE 32 MG in DEXT 5% WATER 218 ML IV PRN (13:09)
[2020-07-17] MEDS: MORPHINE SULFATE 2 MG/ML CPJ (NOT FOR IM USE) IV PRN (16:49)
[2020-07-17] MEDS: SODIUM HYPOCHLORITE 0.125% 473ML SOLUTION TOP SCH (17:00)
[2020-07-17] MEDS ORDERED: ALTEPLASE 2MG/VIAL ITC NR (19:30)
[2020-07-17] MEDS: AMPICILLIN SOD/SULBACTAM NA 3 G in SODIUM CHLORIDE 0.9% 100 ML IV SCH (20:54)
[2020-07-17] MEDS: ONDANSETRON HCL 4MG/2ML INJ IV PRN (20:57)
[2020-07-18] VITALS (181 sets, daily range): BP systolic 52–144; BP diastolic 21–135
[2020-07-18] MEDS: NOREPINEPHRINE 32 MG in DEXT 5% WATER 218 ML IV PRN ×3 (00:55→20:45)
[2020-07-18 05:03] LABS: CHLORIDE 87 mEq/L (98-107)
[2020-07-18] MEDS: MIDODRINE HCL 5MG TABLET PO SCH ×3 (05:40→21:14)
[2020-07-18] MEDS: METOCLOPRAMIDE HCL 10MG/2ML VIAL IV SCH ×2 (05:40→16:30)
[2020-07-18] MEDS: GABAPENTIN 300MG CAPSULE PO SCH ×3 (05:40→21:14)
[2020-07-18] MEDS: FOLIC ACID/VITAMIN B COMP W-C TABLET PO SCH (08:52)
[2020-07-18] MEDS: LEVETIRACETAM 500MG TABLET PO SCH ×2 (08:52→21:14)
[2020-07-18] MEDS: PANTOPRAZOLE SODIUM 40 MG/VIAL IV SCH (08:52)
[2020-07-18] MEDS: CINACALCET HCL 60MG TABLET PO SCH (08:52)
[2020-07-18] MEDS: SODIUM HYPOCHLORITE 0.125% 473ML SOLUTION TOP SCH ×2 (09:00→16:54)
[2020-07-18] MEDS ORDERED: PHENYLEPHRINE 100 MG in DEXT 5% WATER 240 ML IV PRN (10:00)
[2020-07-18 11:11] LABS: BASOPHILS % 0.3 % (0.0-2.0); EOSINOPHILS % 0.4 % (0.0-5.0); HEMATOCRIT. 33.4 % (42.0-52.0); HEMOGLOBIN. 10.7 g/dL (14.0-18.0); LYMPHOCYTES % 13.8 % (20.0-50.0); MEAN CORPUSCULAR HEMOGLOBIN 25.2 pg (28.0-32.0); MEAN CORPUSCULAR VOLUME 78.7 fL (80.0-94.0); MEAN PLATELET VOLUME 9.8 fl (7.4-10.4); MONOCYTES % 5.8 % (2.0-8.0); NEUTROPHILS % 79.7 % (40.0-76.0); PLATELET 211 x1000/uL (130-400); RED BLOOD CELL COUNT 4.25 mill/uL (4.7-6.1); RED CELL DISTRIBUTION WIDTH 18.7 % (11.6-14.6)
[2020-07-18 11:28] LABS: INR 1.2; PROTHROMBIN TIME 12.9 sec (9.6-11.0)
[2020-07-18] MEDS ORDERED: LIDOCAINE HCL 1% 20ML VIAL (Pyxis) INJ ONE (11:55)
[2020-07-18] MEDS ORDERED: HEPARIN 1000 UNITS/ML 10ML ONE (11:56)
[2020-07-18] MEDS ORDERED: ALBUMIN HUMAN 25GM/100ML (25%) IV NR (15:00)
[2020-07-18] MEDS ORDERED: ALTEPLASE 2MG/VIAL ITC NR (16:30)
[2020-07-18] MEDS ORDERED: HEPARIN SODIUM 1,000 UNIT/1ML VIAL IV NR (16:30)
[2020-07-18] MEDS: PHENYLEPHRINE 100 MG in DEXT 5% WATER 240 ML IV PRN ×3 (17:00→22:26)
[2020-07-18] MEDS: HEPARIN SODIUM 1,000 UNIT/1ML VIAL IV SCH ×3 (18:06→19:25)
[2020-07-18] MEDS: AMPICILLIN SOD/SULBACTAM NA 3 G in SODIUM CHLORIDE 0.9% 100 ML IV SCH (21:16)
[2020-07-18] MEDS ORDERED: DOPAMINE 800MG PREMIX (DOUBLE) 250 ML IV PRN (22:00)
[2020-07-19] VITALS (164 sets, daily range): BP systolic 39–216; BP diastolic 21–136
[2020-07-19] MEDS: NOREPINEPHRINE 32 MG in DEXT 5% WATER 218 ML IV PRN ×3 (02:25→18:00)
[2020-07-19] MEDS: PHENYLEPHRINE 100 MG in DEXT 5% WATER 240 ML IV PRN ×3 (02:26→16:00)
[2020-07-19] MEDS: METOCLOPRAMIDE HCL 10MG/2ML VIAL IV SCH ×2 (05:40→16:03)
[2020-07-19] MEDS: MIDODRINE HCL 5MG TABLET PO SCH ×3 (05:40→21:05)
[2020-07-19] MEDS: GABAPENTIN 300MG CAPSULE PO SCH (05:40)
[2020-07-19 08:22] LABS: BASOPHILS % 0.2 % (0.0-2.0); EOSINOPHILS % 0.3 % (0.0-5.0); HEMATOCRIT. 29.8 % (42.0-52.0); HEMOGLOBIN. 9.4 g/dL (14.0-18.0); LYMPHOCYTES % 7.3 % (20.0-50.0); MEAN CORPUSCULAR HEMOGLOBIN 24.7 pg (28.0-32.0); MEAN PLATELET VOLUME 9.7 fl (7.4-10.4); MONOCYTES % 7.4 % (2.0-8.0); NEUTROPHILS % 84.8 % (40.0-76.0); PLATELET 193 x1000/uL (130-400); RED BLOOD CELL COUNT 3.82 mill/uL (4.7-6.1); RED CELL DISTRIBUTION WIDTH 19.1 % (11.6-14.6)
[2020-07-19] MEDS: FOLIC ACID/VITAMIN B COMP W-C TABLET PO SCH (09:01)
[2020-07-19] MEDS: CINACALCET HCL 60MG TABLET PO SCH (09:01)
[2020-07-19] MEDS: LEVETIRACETAM 500MG TABLET PO SCH ×2 (09:01→21:08)
[2020-07-19] MEDS: PANTOPRAZOLE SODIUM 40 MG/VIAL IV SCH (09:01)
[2020-07-19] MEDS ORDERED: VASOPRESSIN 20 UNIT in SODIUM CHLORIDE 0.9% 99 ML IV PRN (10:00)
[2020-07-19] MEDS ORDERED: GABAPENTIN 300MG CAPSULE PO PRN (11:00)
[2020-07-19 11:20] LABS: BG BASE EXCESS -5.2 mmol/L (-2.0-2.0); BG CARBOXYHEMOGLOBIN 0.2 % (0.5-1.5); BG DEOXYHEMOGLOBIN 1.6 % (0.0-5.0); BG FRACTION INSPIRED OXYGEN 40; BG HCO3 ACT 21.1 mmol/L (22.0-26.0); BG METHEMOGLOBIN 0.2 % (0.0-1.5); BG OXYGEN SATURATION 98.4 % (92.0-98.5); BG PCO2 44.5 mmHg (35.0-45.0); BG PH 7.294 (7.350-7.450); BG PO2 132.8 mmHg (75.0-100.0); BG SAMPLE SITE LEFT RADIAL; BG TOTAL HEMOGLOBIN 10.9 g/dL (12.0-18.0); BG VENT MODE NASAL CANNULA
[2020-07-19] MEDS ORDERED: SODIUM BICARBONATE 8.4% 1 MEQ/ML 50ML SYR IV SCH (11:30)
[2020-07-19] MEDS: FLUDROCORTISONE ACETATE 0.1MG TABLET PO SCH (11:56)
[2020-07-19] MEDS ORDERED: ENOXAPARIN 100MG/ML SYR SUBCUT SCH (13:00)
[2020-07-19] MEDS: LINEZOLID 600 MG PREMIX 300 ML IV SCH (17:06)
[2020-07-19] MEDS: EPOETIN ALFA-EPBX 10,000 UNIT/ML VIAL SUBCUT SCH (21:00)
[2020-07-19] MEDS ORDERED: HEPARIN 5000 UNITS/ML VIAL SUBCUT SCH (21:00)
[2020-07-19] MEDS: AMPICILLIN SOD/SULBACTAM NA 3 G in SODIUM CHLORIDE 0.9% 100 ML IV SCH (21:05)
[2020-07-19] MEDS: ACETAMINOPHEN 325MG TABLET PO PRN (22:21)
[2020-07-20] VITALS (95 sets, daily range): BP systolic 51–140; BP diastolic 35–133
[2020-07-20] MEDS: PHENYLEPHRINE 100 MG in DEXT 5% WATER 240 ML IV PRN ×4 (01:37→22:18)
[2020-07-20] MEDS: NOREPINEPHRINE 32 MG in DEXT 5% WATER 218 ML IV PRN ×3 (01:37→20:37)
[2020-07-20] MEDS: MIDODRINE HCL 5MG TABLET PO SCH ×3 (05:00→20:52)
[2020-07-20] MEDS: LINEZOLID 600 MG PREMIX 300 ML IV SCH ×2 (05:00→18:20)
[2020-07-20] MEDS: METOCLOPRAMIDE HCL 10MG/2ML VIAL IV SCH ×2 (05:01→18:20)
[2020-07-20 05:08] LABS: HEMATOCRIT. 27.2 % (42.0-52.0); HEMOGLOBIN. 8.5 g/dL (14.0-18.0); MEAN CORPUSCULAR VOLUME 79.7 fL (80.0-94.0); MEAN PLATELET VOLUME 9.8 fl (7.4-10.4); PLATELET 210 x1000/uL (130-400); RED BLOOD CELL COUNT 3.42 mill/uL (4.7-6.1)
[2020-07-20 07:22] LABS: PLATELET ESTIMATE NORMAL
[2020-07-20] MEDS ORDERED: ALBUMIN HUMAN 25GM/100ML (25%) IV NR (10:00)
[2020-07-20] MEDS: LEVETIRACETAM 500MG TABLET PO SCH ×2 (11:18→20:33)
[2020-07-20] MEDS: FLUDROCORTISONE ACETATE 0.1MG TABLET PO SCH (11:18)
[2020-07-20] MEDS: FOLIC ACID/VITAMIN B COMP W-C TABLET PO SCH (11:18)
[2020-07-20] MEDS: CINACALCET HCL 60MG TABLET PO SCH (11:18)
[2020-07-20] MEDS: PANTOPRAZOLE SODIUM 40 MG/VIAL IV SCH (11:18)
[2020-07-20] MEDS: IRON SUCROSE COMPLEX 100 MG/5 ML ML IV SCH (18:20)
[2020-07-20] MEDS: FERROUS SULFATE 325MG TABLET PO SCH (18:21)
[2020-07-20] MEDS: AMPICILLIN SOD/SULBACTAM NA 3 G in SODIUM CHLORIDE 0.9% 100 ML IV SCH (20:33)
[2020-07-21] VITALS (96 sets, daily range): BP systolic 42–267; BP diastolic 29–256
[2020-07-21] MEDS: MIDODRINE HCL 5MG TABLET PO SCH ×3 (05:02→21:30)
[2020-07-21] MEDS: LINEZOLID 600 MG PREMIX 300 ML IV SCH ×2 (05:03→17:38)
[2020-07-21 05:36] LABS: BASOPHILS % 0.3 % (0.0-2.0); EOSINOPHILS % 0.6 % (0.0-5.0); LYMPHOCYTES % 7.8 % (20.0-50.0); MEAN CORPUSCULAR HEMOGLOBIN 25.6 pg (28.0-32.0); MEAN CORPUSCULAR VOLUME 80.2 fL (80.0-94.0); MEAN PLATELET VOLUME 10.2 fl (7.4-10.4); MONOCYTES % 8.8 % (2.0-8.0); NEUTROPHILS % 82.5 % (40.0-76.0); PLATELET 164 x1000/uL (130-400); RED BLOOD CELL COUNT 2.25 mill/uL (4.7-6.1); RED CELL DISTRIBUTION WIDTH 19.1 % (11.6-14.6)
[2020-07-21 05:44] LABS: HEMOGLOBIN. 5.7 g/dL (14.0-18.0)
[2020-07-21] MEDS: FERROUS SULFATE 325MG TABLET PO SCH ×3 (06:35→17:37)
[2020-07-21] MEDS: METOCLOPRAMIDE HCL 10MG/2ML VIAL IV SCH (06:35)
[2020-07-21 08:37] LABS: HEMATOCRIT 18.1 % (42.0-52.0); HEMOGLOBIN 5.6 g/dL (14.0-18.0)
[2020-07-21] MEDS ORDERED: PANTOPRAZOLE SODIUM 40 MG/VIAL IV ONE (09:06)
[2020-07-21] MEDS: FOLIC ACID/VITAMIN B COMP W-C TABLET PO SCH (09:10)
[2020-07-21] MEDS: CINACALCET HCL 60MG TABLET PO SCH (09:10)
[2020-07-21] MEDS: LEVETIRACETAM 500MG TABLET PO SCH ×2 (09:10→21:30)
[2020-07-21] MEDS: FLUDROCORTISONE ACETATE 0.1MG TABLET PO SCH (09:10)
[2020-07-21] MEDS: PANTOPRAZOLE 80 MG in SODIUM CHLORIDE 0.9% 100 ML IV SCH ×2 (09:18→16:12)
[2020-07-21] MEDS: NOREPINEPHRINE 32 MG in DEXT 5% WATER 218 ML IV PRN ×2 (16:12→21:14)
[2020-07-21 17:07] LABS: HEMATOCRIT 28.3 % (42.0-52.0); HEMOGLOBIN 9.1 g/dL (14.0-18.0)
[2020-07-21] MEDS: IRON SUCROSE COMPLEX 100 MG/5 ML ML IV SCH (17:37)
[2020-07-21 21:07] LABS: HEMATOCRIT 29.7 % (42.0-52.0); HEMOGLOBIN 9.7 g/dL (14.0-18.0)
[2020-07-21] MEDS: AMPICILLIN SOD/SULBACTAM NA 3 G in SODIUM CHLORIDE 0.9% 100 ML IV SCH (21:14)
[2020-07-22] VITALS (96 sets, daily range): BP systolic 52–171; BP diastolic 29–129
[2020-07-22 01:22] LABS: HEMATOCRIT 37.6 % (42.0-52.0); HEMOGLOBIN 11.6 g/dL (14.0-18.0)
[2020-07-22] MEDS: NOREPINEPHRINE 32 MG in DEXT 5% WATER 218 ML IV PRN ×3 (02:20→21:20)
[2020-07-22] MEDS: PHENYLEPHRINE 100 MG in DEXT 5% WATER 240 ML IV PRN ×3 (04:09→21:19)
[2020-07-22 04:46] LABS: BASOPHILS % 0.3 % (0.0-2.0); EOSINOPHILS % 0.7 % (0.0-5.0); HEMOGLOBIN. 9.8 g/dL (14.0-18.0); LYMPHOCYTES % 9.7 % (20.0-50.0); MEAN CORPUSCULAR HEMOGLOBIN 25.4 pg (28.0-32.0); MEAN CORPUSCULAR VOLUME 80.5 fL (80.0-94.0); MEAN PLATELET VOLUME 10.1 fl (7.4-10.4); MONOCYTES % 10.7 % (2.0-8.0); NEUTROPHILS % 78.6 % (40.0-76.0); PLATELET 334 x1000/uL (130-400); RED BLOOD CELL COUNT 3.85 mill/uL (4.7-6.1); RED CELL DISTRIBUTION WIDTH 18.3 % (11.6-14.6)
[2020-07-22 04:50] LABS: INR 1.1; PARTIAL THROMBOPLASTIN TIME 33.6 sec (23.4-31.0); PROTHROMBIN TIME 12.2 sec (9.6-11.0)
[2020-07-22] MEDS: PANTOPRAZOLE 80 MG in SODIUM CHLORIDE 0.9% 100 ML IV SCH ×2 (05:16→14:03)
[2020-07-22] MEDS: LINEZOLID 600 MG PREMIX 300 ML IV SCH ×2 (05:17→17:35)
[2020-07-22] MEDS: MIDODRINE HCL 5MG TABLET PO SCH ×3 (06:00→22:49)
[2020-07-22] MEDS: FERROUS SULFATE 325MG TABLET PO SCH ×4 (07:00→17:35)
[2020-07-22] MEDS: LEVETIRACETAM 500MG TABLET PO SCH (09:00)
[2020-07-22] MEDS: FLUDROCORTISONE ACETATE 0.1MG TABLET PO SCH (09:00)
[2020-07-22] MEDS: FOLIC ACID/VITAMIN B COMP W-C TABLET PO SCH (09:00)
[2020-07-22 14:35] LABS: HEMATOCRIT 29.7 % (42.0-52.0); HEMOGLOBIN 9.3 g/dL (14.0-18.0)
[2020-07-22] MEDS: IRON SUCROSE COMPLEX 100 MG/5 ML ML IV SCH (16:34)
[2020-07-22] MEDS: LEVETIRACETAM 250MG TABLET PO SCH (20:40)
[2020-07-22] MEDS: AMPICILLIN SOD/SULBACTAM NA 3 G in SODIUM CHLORIDE 0.9% 100 ML IV SCH (20:40)
[2020-07-22] MEDS: ACETAMINOPHEN 325MG TABLET PO PRN (20:53)
[2020-07-22 22:22] LABS: HEMATOCRIT 29.6 % (42.0-52.0); HEMOGLOBIN 9.5 g/dL (14.0-18.0)
[2020-07-22] MEDS: TRAZODONE HCL 50MG TABLET PO PRN (22:22)
[2020-07-23] VITALS (105 sets, daily range): BP systolic 69–130; BP diastolic 29–110
[2020-07-23] MEDS: PANTOPRAZOLE 80 MG in SODIUM CHLORIDE 0.9% 100 ML IV SCH ×3 (01:59→18:54)
[2020-07-23] MEDS: PHENYLEPHRINE 100 MG in DEXT 5% WATER 240 ML IV PRN ×4 (04:33→23:54)
[2020-07-23 04:53] LABS: HEMATOCRIT. 34.2 % (42.0-52.0); HEMOGLOBIN. 10.4 g/dL (14.0-18.0); MEAN CORPUSCULAR HEMOGLOBIN 25.8 pg (28.0-32.0); MEAN CORPUSCULAR VOLUME 84.9 fL (80.0-94.0); MEAN PLATELET VOLUME 8.9 fl (7.4-10.4); PLATELET 235 x1000/uL (130-400); RED BLOOD CELL COUNT 4.03 mill/uL (4.7-6.1); RED CELL DISTRIBUTION WIDTH 18.6 % (11.6-14.6)
[2020-07-23] MEDS: LINEZOLID 600 MG PREMIX 300 ML IV SCH ×2 (05:22→18:53)
[2020-07-23] MEDS: MIDODRINE HCL 5MG TABLET PO SCH ×3 (05:22→22:30)
[2020-07-23] MEDS: FERROUS SULFATE 325MG TABLET PO SCH ×3 (06:28→16:39)
[2020-07-23] MEDS: FOLIC ACID/VITAMIN B COMP W-C TABLET PO SCH (09:00)
[2020-07-23] MEDS: LEVETIRACETAM 250MG TABLET PO SCH ×2 (09:00→20:36)
[2020-07-23] MEDS: FLUDROCORTISONE ACETATE 0.1MG TABLET PO SCH (09:00)
[2020-07-23] MEDS ORDERED: ACETAMINOPHEN 650MG SUPP PR NR (09:30)
[2020-07-23 16:26] LABS: PLATELET ESTIMATE NORMAL
[2020-07-23] MEDS: AMPICILLIN SOD/SULBACTAM NA 3 G in SODIUM CHLORIDE 0.9% 100 ML IV SCH (20:36)
[2020-07-23] MEDS: ACETAMINOPHEN 325MG TABLET PO PRN (20:37)
[2020-07-24] VITALS (108 sets, daily range): BP systolic 59–125; BP diastolic 35–90
[2020-07-24] MEDS: TRAZODONE HCL 50MG TABLET PO PRN ×2 (00:45→23:45)
[2020-07-24] MEDS: PANTOPRAZOLE 80 MG in SODIUM CHLORIDE 0.9% 100 ML IV SCH ×2 (01:05→12:49)
[2020-07-24] MEDS: NOREPINEPHRINE 32 MG in DEXT 5% WATER 218 ML IV PRN ×2 (01:05→21:26)
[2020-07-24] MEDS: MIDODRINE HCL 5MG TABLET PO SCH ×3 (05:11→21:25)
[2020-07-24] MEDS: LINEZOLID 600 MG PREMIX 300 ML IV SCH ×2 (05:11→17:22)
[2020-07-24] MEDS: PHENYLEPHRINE 100 MG in DEXT 5% WATER 240 ML IV PRN ×4 (05:12→22:29)
[2020-07-24 05:37] LABS: BASOPHILS % 0.7 % (0.0-2.0); EOSINOPHILS % 0.4 % (0.0-5.0); HEMATOCRIT. 31.9 % (42.0-52.0); MEAN CORPUSCULAR HEMOGLOBIN 25.8 pg (28.0-32.0); MEAN CORPUSCULAR VOLUME 82.5 fL (80.0-94.0); MEAN PLATELET VOLUME 9.8 fl (7.4-10.4); NEUTROPHILS % 75.9 % (40.0-76.0); PLATELET 330 x1000/uL (130-400); RED BLOOD CELL COUNT 3.87 mill/uL (4.7-6.1)
[2020-07-24 10:10] LABS: TOTAL IRON BINDING CAPACITY 193 ug/dL (250-450)
[2020-07-24] MEDS: FOLIC ACID/VITAMIN B COMP W-C TABLET PO SCH (10:26)
[2020-07-24] MEDS: FERROUS SULFATE 325MG TABLET PO SCH ×3 (10:26→17:22)
[2020-07-24] MEDS: FLUDROCORTISONE ACETATE 0.1MG TABLET PO SCH (10:26)
[2020-07-24] MEDS: LEVETIRACETAM 250MG TABLET PO SCH ×2 (10:26→21:25)
[2020-07-24 10:41] LABS: FOLIC ACID (FOLATE) SERUM 3.9 ng/mL (>5.38)
[2020-07-24] MEDS ORDERED: PHENYLEPHRINE 100 MG in DEXT 5% WATER 240 ML IV PRN (13:15)
[2020-07-24] MEDS: AMPICILLIN SOD/SULBACTAM NA 3 G in SODIUM CHLORIDE 0.9% 100 ML IV SCH (19:58)
[2020-07-25] VITALS (95 sets, daily range): BP systolic 60–154; BP diastolic 35–82
[2020-07-25] MEDS: PANTOPRAZOLE 80 MG in SODIUM CHLORIDE 0.9% 100 ML IV SCH ×3 (01:57→18:46)
[2020-07-25] MEDS: PHENYLEPHRINE 100 MG in DEXT 5% WATER 240 ML IV PRN ×2 (04:14→09:25)
[2020-07-25 05:00] LABS: BASOPHILS % 0.6 % (0.0-2.0); EOSINOPHILS % 0.2 % (0.0-5.0); HEMATOCRIT. 30.2 % (42.0-52.0); HEMOGLOBIN. 9.3 g/dL (14.0-18.0); LYMPHOCYTES % 9.8 % (20.0-50.0); MEAN CORPUSCULAR HEMOGLOBIN 25.4 pg (28.0-32.0); MEAN CORPUSCULAR VOLUME 82.7 fL (80.0-94.0); MEAN PLATELET VOLUME 9.8 fl (7.4-10.4); MONOCYTES % 11.7 % (2.0-8.0); NEUTROPHILS % 77.7 % (40.0-76.0); PLATELET 352 x1000/uL (130-400); RED BLOOD CELL COUNT 3.65 mill/uL (4.7-6.1); RED CELL DISTRIBUTION WIDTH 18.9 % (11.6-14.6)
[2020-07-25] MEDS: LINEZOLID 600 MG PREMIX 300 ML IV SCH ×2 (06:00→18:46)
[2020-07-25] MEDS: MIDODRINE HCL 5MG TABLET PO SCH ×3 (06:01→21:21)
[2020-07-25] MEDS: FERROUS SULFATE 325MG TABLET PO SCH ×3 (06:01→18:46)
[2020-07-25] MEDS ORDERED: PHENYLEPHRINE 200 MG in DEXT 5% WATER 480 ML IV PRN (07:00)
[2020-07-25] MEDS: FOLIC ACID/VITAMIN B COMP W-C TABLET PO SCH (08:18)
[2020-07-25] MEDS: LEVETIRACETAM 250MG TABLET PO SCH ×2 (08:18→21:21)
[2020-07-25] MEDS: FLUDROCORTISONE ACETATE 0.1MG TABLET PO SCH (08:18)
[2020-07-25] MEDS: NOREPINEPHRINE 32 MG in DEXT 5% WATER 218 ML IV PRN (14:38)
[2020-07-25] MEDS: PHENYLEPHRINE 200 MG in DEXT 5% WATER 480 ML IV PRN (14:41)
[2020-07-25] MEDS ORDERED: CALCIUM CARBONATE 500MG TABLET CHEW PO PRN (17:30)
[2020-07-25] MEDS ORDERED: DIPHENOXYLATE/ATROPINE 2.5/0.025MG TABLET PO PRN (17:30)
[2020-07-25] MEDS ORDERED: HYDROCODONE/ACETAMINOPHEN 5/325MG TABLET PO PRN (17:30)
[2020-07-25] MEDS: AMPICILLIN SOD/SULBACTAM NA 3 G in SODIUM CHLORIDE 0.9% 100 ML IV SCH (20:13)
[2020-07-25 20:30] LABS: INR 1.5; PROTHROMBIN TIME 15.5 sec (9.6-11.0)
[2020-07-26] VITALS (103 sets, daily range): BP systolic 54–163; BP diastolic 33–113
[2020-07-26] MEDS: PHENYLEPHRINE 200 MG in DEXT 5% WATER 480 ML IV PRN ×3 (01:17→21:15)
[2020-07-26] MEDS: PANTOPRAZOLE 80 MG in SODIUM CHLORIDE 0.9% 100 ML IV SCH (02:25)
[2020-07-26 04:55] LABS: BASOPHILS % 0.5 % (0.0-2.0); EOSINOPHILS % 0.5 % (0.0-5.0); HEMATOCRIT. 28.3 % (42.0-52.0); HEMOGLOBIN. 8.8 g/dL (14.0-18.0); LYMPHOCYTES % 13.9 % (20.0-50.0); MEAN CORPUSCULAR HEMOGLOBIN 25.7 pg (28.0-32.0); MEAN CORPUSCULAR VOLUME 82.5 fL (80.0-94.0); MEAN PLATELET VOLUME 9.5 fl (7.4-10.4); MONOCYTES % 10.8 % (2.0-8.0); NEUTROPHILS % 74.3 % (40.0-76.0); PLATELET 311 x1000/uL (130-400); RED BLOOD CELL COUNT 3.43 mill/uL (4.7-6.1); RED CELL DISTRIBUTION WIDTH 19.9 % (11.6-14.6)
[2020-07-26] MEDS: LINEZOLID 600 MG PREMIX 300 ML IV SCH ×2 (05:43→18:00)
[2020-07-26] MEDS: MIDODRINE HCL 5MG TABLET PO SCH ×3 (05:44→22:00)
[2020-07-26] MEDS: NOREPINEPHRINE 32 MG in DEXT 5% WATER 218 ML IV PRN ×2 (05:52→19:51)
[2020-07-26] MEDS: FERROUS SULFATE 325MG TABLET PO SCH ×3 (06:26→16:38)
[2020-07-26] MEDS: FOLIC ACID 1MG TABLET PO SCH (09:05)
[2020-07-26] MEDS: LEVETIRACETAM 250MG TABLET PO SCH ×2 (09:05→21:45)
[2020-07-26] MEDS: FLUDROCORTISONE ACETATE 0.1MG TABLET PO SCH (09:05)
[2020-07-26] MEDS: PANTOPRAZOLE SODIUM 40 MG/VIAL IV SCH (16:38)
[2020-07-26] MEDS: DIPHENHYDRAMINE 50MG/ML VIAL IV PRN (16:38)
[2020-07-26] MEDS ORDERED: HEPARIN SODIUM 1,000 UNIT/1ML VIAL IV ONE ×4 (17:00→20:45)
[2020-07-26] MEDS ORDERED: EPOETIN ALFA-EPBX 10,000 UNIT/ML VIAL SUBCUT SCH (21:00)
[2020-07-26] MEDS: AMPICILLIN SOD/SULBACTAM NA 3 G in SODIUM CHLORIDE 0.9% 100 ML IV SCH (21:15)
[2020-07-26] MEDS: TRAZODONE HCL 50MG TABLET PO PRN (21:46)
[2020-07-27] VITALS (80 sets, daily range): BP systolic 55–161; BP diastolic 29–134
[2020-07-27] MEDS: NOREPINEPHRINE 32 MG in DEXT 5% WATER 218 ML IV PRN ×4 (01:19→23:47)
[2020-07-27 04:48] LABS: BASOPHILS % 0.5 % (0.0-2.0); EOSINOPHILS % 0.2 % (0.0-5.0); HEMATOCRIT. 31.4 % (42.0-52.0); HEMOGLOBIN. 9.9 g/dL (14.0-18.0); LYMPHOCYTES % 11.1 % (20.0-50.0); MEAN CORPUSCULAR HEMOGLOBIN 25.8 pg (28.0-32.0); MEAN CORPUSCULAR VOLUME 82.3 fL (80.0-94.0); MEAN PLATELET VOLUME 9.4 fl (7.4-10.4); MONOCYTES % 11.2 % (2.0-8.0); PLATELET 313 x1000/uL (130-400); RED BLOOD CELL COUNT 3.82 mill/uL (4.7-6.1); RED CELL DISTRIBUTION WIDTH 19.9 % (11.6-14.6)
[2020-07-27 04:55] LABS: CHLORIDE 96 mEq/L (98-107)
[2020-07-27 05:12] LABS: PHOSPHORUS 5.3 mg/dL (2.5-4.9)
[2020-07-27] MEDS: LINEZOLID 600 MG PREMIX 300 ML IV SCH ×2 (05:41→18:57)
[2020-07-27] MEDS ORDERED: PHYTONADIONE 10MG/ML AMP SUBCUT NR (05:45)
[2020-07-27] MEDS: MIDODRINE HCL 5MG TABLET PO SCH ×3 (06:37→23:13)
[2020-07-27] MEDS: FERROUS SULFATE 325MG TABLET PO SCH ×3 (06:37→18:57)
[2020-07-27] MEDS: PHENYLEPHRINE 200 MG in DEXT 5% WATER 480 ML IV PRN ×2 (08:24→20:00)
[2020-07-27] MEDS: FLUDROCORTISONE ACETATE 0.1MG TABLET PO SCH (08:44)
[2020-07-27] MEDS: FOLIC ACID 1MG TABLET PO SCH (08:44)
[2020-07-27] MEDS: PANTOPRAZOLE SODIUM 40 MG/VIAL IV SCH ×2 (08:47→18:57)
[2020-07-27] MEDS: LEVETIRACETAM 250 MG in SODIUM CHLORIDE 0.9% 100 ML IV SCH ×2 (10:39→21:27)
[2020-07-27] MEDS ORDERED: DIAZEPAM 5 MG/ML 2ML CPJ ONE (11:08)
[2020-07-27] MEDS ORDERED: MIDAZOLAM HCL 5 MG/5 ML VIAL ONE (11:08)
[2020-07-27] MEDS ORDERED: DIPHENHYDRAMINE 50MG/ML VIAL ONE (11:08)
[2020-07-27] MEDS ORDERED: FENTANYL CITRATE/PF 50MCG/ML 2ML VIAL ONE (11:08)
[2020-07-27] MEDS ORDERED: MIDAZOLAM HCL 5 MG/5 ML VIAL IV PRN (11:30)
[2020-07-27] MEDS ORDERED: DIAZEPAM 5 MG/ML 2ML CPJ IV PRN (11:31)
[2020-07-27] MEDS ORDERED: DIPHENHYDRAMINE 50MG/ML VIAL IV PRN (11:38)
[2020-07-27] MEDS ORDERED: FENTANYL CITRATE/PF 50MCG/ML 2ML VIAL IV PRN (11:40)
[2020-07-27] MEDS ORDERED: ALBUMIN HUMAN 12.5G/250ML (5%) IV PRN (12:30)
[2020-07-27 15:29] LABS: INR 1.1; PROTHROMBIN TIME 11.6 sec (9.6-11.0)
[2020-07-27] MEDS: SUCRALFATE 1 G/10 ML UDC PO SCH ×2 (15:41→21:27)
[2020-07-27] MEDS: AMPICILLIN SOD/SULBACTAM NA 3 G in SODIUM CHLORIDE 0.9% 100 ML IV SCH (19:59)
[2020-07-28] VITALS (52 sets, daily range): BP systolic 42–152; BP diastolic 30–105
[2020-07-28 05:00] LABS: EOSINOPHILS % 1.1 % (0.0-5.0); HEMATOCRIT. 29.6 % (42.0-52.0); HEMOGLOBIN. 9.2 g/dL (14.0-18.0); LYMPHOCYTES % 13.8 % (20.0-50.0); MEAN CORPUSCULAR HEMOGLOBIN 25.9 pg (28.0-32.0); MEAN CORPUSCULAR VOLUME 83.4 fL (80.0-94.0); MEAN PLATELET VOLUME 9.3 fl (7.4-10.4); MONOCYTES % 13.7 % (2.0-8.0); NEUTROPHILS % 70.4 % (40.0-76.0); PLATELET 265 x1000/uL (130-400); RED BLOOD CELL COUNT 3.55 mill/uL (4.7-6.1); RED CELL DISTRIBUTION WIDTH 20.3 % (11.6-14.6)
[2020-07-28] MEDS: LINEZOLID 600 MG PREMIX 300 ML IV SCH (05:14)
[2020-07-28] MEDS: FERROUS SULFATE 325MG TABLET PO SCH ×2 (06:27→13:21)
[2020-07-28] MEDS: MIDODRINE HCL 5MG TABLET PO SCH (06:27)
[2020-07-28] MEDS: SUCRALFATE 1 G/10 ML UDC PO SCH ×2 (06:27→13:21)
[2020-07-28] MEDS: PHENYLEPHRINE 200 MG in DEXT 5% WATER 480 ML IV PRN (08:07)
[2020-07-28] MEDS: NOREPINEPHRINE 32 MG in DEXT 5% WATER 218 ML IV PRN ×2 (08:09→15:06)
[2020-07-28] MEDS: FLUDROCORTISONE ACETATE 0.1MG TABLET PO SCH (08:55)
[2020-07-28] MEDS: FOLIC ACID 1MG TABLET PO SCH (08:55)
[2020-07-28] MEDS: PANTOPRAZOLE SODIUM 40 MG/VIAL IV SCH (08:55)
[2020-07-28] MEDS ORDERED: PHYTONADIONE 10MG/ML AMP SUBCUT NR (09:00)
[2020-07-28] MEDS ORDERED: HEPARIN SODIUM 1,000 UNIT/1ML VIAL IV NR ×2 (09:45→10:30)
[2020-07-28] MEDS ORDERED: OXYMETAZOLINE HCL NASAL SPRAY 15ML BOTHNSTRLS PRN (10:00)
[2020-07-28] MEDS ORDERED: LIDOCAINE HCL 1% 20ML VIAL (Pyxis) INJ INFIL NR (10:16)
[2020-07-28] MEDS ORDERED: LIDOCAINE HCL 2% JELLY 5ML TOP NR (10:30)
[2020-07-28] MEDS: LEVETIRACETAM 250 MG in SODIUM CHLORIDE 0.9% 100 ML IV SCH (12:31)
== END 2020-07-28 16:27 | disposition short-term general hospital (02) | DRG 853 ==
LOC: ER 13:16 → 5WST 17:16 → EDBEDREQTM 17:18 → EDBEDREQ 17:18 → ENRESERV 20:25 → MICUSO 07-15 14:51
PROVIDERS: ADMIT Family Medicine Adult Medicine; ATTEND Family Medicine Adult Medicine
PROC: 4A10X4Z Monitoring of Central Nervous Electrical Activity, External Approach (ICD-10-PCS; 2020-07-13)
PROC: 0Y6M0Z9 Detachment at Right Foot, Partial 1st Ray, Open Approach (ICD-10-PCS; principal; 2020-07-15)
PROC: 05HY33Z Insertion of Infusion Device into Upper Vein, Percutaneous Approach (ICD-10-PCS; 2020-07-16)
PROC: B54MZZA Ultrasonography of Right Upper Extremity Veins, Guidance (ICD-10-PCS; 2020-07-16)
PROC: 05PYX3Z Removal of Infusion Device from Upper Vein, External Approach (ICD-10-PCS; 2020-07-17)
PROC: 06H033Z Insertion of Infusion Device into Inferior Vena Cava, Percutaneous Approach (ICD-10-PCS; 2020-07-17)
PROC: 0JH63XZ Insertion of Tunneled Vascular Access Device into Chest Subcutaneous Tissue and Fascia, Percutaneous Approach (ICD-10-PCS; 2020-07-17)
PROC: B5191ZA Fluoroscopy of Inferior Vena Cava using Low Osmolar Contrast, Guidance (ICD-10-PCS; 2020-07-17)
PROC: 06HY33Z Insertion of Infusion Device into Lower Vein, Percutaneous Approach (ICD-10-PCS; 2020-07-18)
PROC: B54CZZA Ultrasonography of Left Lower Extremity Veins, Guidance (ICD-10-PCS; 2020-07-18)
PROC: 30233N1 Transfusion of Nonautologous Red Blood Cells into Peripheral Vein, Percutaneous Approach (ICD-10-PCS; 2020-07-21)
PROC: 0BH17EZ Insertion of Endotracheal Airway into Trachea, Via Natural or Artificial Opening (ICD-10-PCS; 2020-07-22)
PROC: 5A1935Z Respiratory Ventilation, Less than 24 Consecutive Hours (ICD-10-PCS; 2020-07-22)
PROC: 0DB78ZX Excision of Stomach, Pylorus, Via Natural or Artificial Opening Endoscopic, Diagnostic (ICD-10-PCS; 2020-07-27)
PROC: 30233K1 Transfusion of Nonautologous Frozen Plasma into Peripheral Vein, Percutaneous Approach (ICD-10-PCS; 2020-07-27)
PROC: 0JBQ0ZZ Excision of Right Foot Subcutaneous Tissue and Fascia, Open Approach (ICD-10-PCS; 2020-07-28)
DX: A41.81 Sepsis due to Enterococcus (principal); E43 Unspecified severe protein-calorie malnutrition; N18.6 End stage renal disease; R65.21 Severe sepsis with septic shock; G93.41 Metabolic encephalopathy; K22.11 Ulcer of esophagus with bleeding; M86.171 Other acute osteomyelitis, right ankle and foot; E87.1 Hypo-osmolality and hyponatremia; E87.2 Acidosis; I13.2 Hypertensive heart and chronic kidney disease with heart failure and with stage 5 chronic kidney disease, or end stage renal disease; N25.81 Secondary hyperparathyroidism of renal origin; D62 Acute posthemorrhagic anemia; D68.9 Coagulation defect, unspecified; Z16.21 Resistance to vancomycin; I82.513 Chronic embolism and thrombosis of femoral vein, bilateral; T82.41XA Breakdown (mechanical) of vascular dialysis catheter, initial encounter; Z68.44 Body mass index [BMI] 60.0-69.9, adult; D63.1 Anemia in chronic kidney disease; E66.01 Morbid (severe) obesity due to excess calories; E87.8 Other disorders of electrolyte and fluid balance, not elsewhere classified; G47.33 Obstructive sleep apnea (adult) (pediatric); N25.0 Renal osteodystrophy; I50.9 Heart failure, unspecified; G40.909 Epilepsy, unspecified, not intractable, without status epilepticus; I73.9 Peripheral vascular disease, unspecified; R74.8 Abnormal levels of other serum enzymes; R94.31 Abnormal electrocardiogram [ECG] [EKG]; G89.4 Chronic pain syndrome; K29.60 Other gastritis without bleeding; K59.00 Constipation, unspecified; K76.0 Fatty (change of) liver, not elsewhere classified; R04.0 Epistaxis; Z20.822 Contact with and (suspected) exposure to COVID-19; E21.3 Hyperparathyroidism, unspecified; F41.9 Anxiety disorder, unspecified; F17.210 Nicotine dependence, cigarettes, uncomplicated; T87.81 Dehiscence of amputation stump; Y83.8 Other surgical procedures as the cause of abnormal reaction of the patient, or of later complication, without mention of misadventure at the time of the procedure; Y71.2 Prosthetic and other implants, materials and accessory cardiovascular devices associated with adverse incidents; Z99.2 Dependence on renal dialysis; Z83.3 Family history of diabetes mellitus; Z79.52 Long term (current) use of systemic steroids; Z89.421 Acquired absence of other right toe(s); Z79.82 Long term (current) use of aspirin; Z79.899 Other long term (current) drug therapy; Z99.3 Dependence on wheelchair; Z87.19 Personal history of other diseases of the digestive system; Y92.89 Other specified places as the place of occurrence of the external cause
CPT/HCPCS: 36415; 36556; 36581; 36600; 71045; 73630; 75635; 76700; 76881; 76937; 77001; 80048; 80053; 80076; 80202; 82140; 82248; 82270; 82375; 82607; 82728; 82746; 82805; 82962; 83540; 83550; 83605; 83735; 83880; 84100; 84145; 84484; 85014; 85018; 85025; 85044; 86850; 86900; 86920; 86927; 87070; 87075; 87077; 87186; 87426; 88305; 88311; 88312; 88313; 92610; 93005; 93306; 93923; 93970; 95816; 97162; 97166; 99152; 99291; A6261; C1725; C1750; C1752; C1769; C1887; C9113; J0295; J0690; J0692; J0885; J1100; J1170; J1200; J1265; J1642; J1644; J1650; J1720; J1953; J2020; J2250; J2270; J2370; J2405; J2543; J2704; J2765; J2997; J3010; J3370; J3430; J3490; J7030; J7040; J7050; J7060; J7070; P9016; P9017; P9041; P9047; Q9967; G0500

== ENCOUNTER → 2020-09-01 | Day surgery (SDC) | payer MEDICARE, MEDICAID ==
[~2020-09-01] VITALS: Ht 172.7 cm; Wt 99.8 kg
[2020-09-01] VITALS (9 sets, daily range): BP systolic 115–137; BP diastolic 45–81
[~2020-09-01] MED LIST changes: +CEFAZOLIN 1000MG PREMIX 50 ML IV ONE; +CEFAZOLIN 1000MG PREMIX 50 ML IV SCH; +FENTANYL CITRATE/PF 50MCG/ML 2ML VIAL IV SCH; +FENTANYL CITRATE/PF 50MCG/ML 2ML VIAL ONE; +IOHEXOL-300 50 ML BOTTLE IV ONE; +LIDOCAINE HCL 1% 20ML VIAL (Pyxis) INJ ONE
== END | disposition home or self-care (01) ==
LOC: RADANGIO 08:29
PROVIDERS: ATTEND Internal Medicine Critical Care Medicine
DX: N18.6 End stage renal disease (principal); E66.01 Morbid (severe) obesity due to excess calories; Z79.899 Other long term (current) drug therapy; Z98.890 Other specified postprocedural states; Z82.49 Family history of ischemic heart disease and other diseases of the circulatory system
CPT/HCPCS: 36558; 36589; 77001; C1725; C1750; C1769; J0690; J1642; J3010; J3490; Q9967; 99152; 99153; G0500

== ENCOUNTER 2020-09-24 07:19 | Inpatient (IN) | payer MEDICARE, MEDICAID ==
[2020-09-24] VITALS (22 sets, daily range): BP systolic 72–180; BP diastolic 44–147
[~2020-09-24] VITALS: Ht 172.7 cm; Wt 106.8 kg
[~2020-09-24 07:19] MED LIST changes: -CEFAZOLIN 1000MG PREMIX 50 ML IV ONE; -CEFAZOLIN 1000MG PREMIX 50 ML IV SCH; -FENTANYL CITRATE/PF 50MCG/ML 2ML VIAL IV SCH; -FENTANYL CITRATE/PF 50MCG/ML 2ML VIAL ONE; -IOHEXOL-300 50 ML BOTTLE IV ONE; -LIDOCAINE HCL 1% 20ML VIAL (Pyxis) INJ ONE
[2020-09-24] MEDS ORDERED: MORPHINE SULFATE 10 MG/ML CPJ IV ONE (08:00)
[2020-09-24] MEDS ORDERED: ONDANSETRON HCL 4MG/2ML INJ IV ONE (08:00)
[2020-09-24 08:19] LABS: BG BASE EXCESS 1.7 mmol/L (-2.0-2.0); BG CARBOXYHEMOGLOBIN 0.1 % (0.5-1.5); BG DEOXYHEMOGLOBIN 3.4 % (0.0-5.0); BG FRACTION INSPIRED OXYGEN 21; BG HCO3 ACT 26.6 mmol/L (22.0-26.0); BG METHEMOGLOBIN 0.3 % (0.0-1.5); BG OXYGEN SATURATION 96.6 % (92.0-98.5); BG OXYHEMOGLOBIN 96.2 % (94.0-97.0); BG PCO2 42.8 mmHg (35.0-45.0); BG PH 7.411 (7.350-7.450); BG PO2 93.3 mmHg (75.0-100.0); BG SAMPLE SITE RIGHT BRACHIAL; BG TOTAL HEMOGLOBIN 10.6 g/dL (12.0-18.0); BG VENT MODE ROOM AIR
[2020-09-24 08:33] LABS: BASOPHILS % 0.9 % (0.0-2.0); EOSINOPHILS % 4.3 % (0.0-5.0); HEMATOCRIT. 31.5 % (42.0-52.0); HEMOGLOBIN. 10.2 g/dL (14.0-18.0); LYMPHOCYTES % 36.1 % (20.0-50.0); MEAN CORPUSCULAR HEMOGLOBIN 29.1 pg (28.0-32.0); MEAN PLATELET VOLUME 10.9 fl (7.4-10.4); MONOCYTES % 5.5 % (2.0-8.0); NEUTROPHILS % 53.2 % (40.0-76.0); PLATELET 167 x1000/uL (130-400); RED CELL DISTRIBUTION WIDTH 18.6 % (11.6-14.6)
[2020-09-24 09:28] LABS: CHLORIDE 105 mEq/L (98-107)
[2020-09-24 09:39] LABS: INR 1.1; PARTIAL THROMBOPLASTIN TIME 29.1 sec (23.4-31.0); PROTHROMBIN TIME 11.5 sec (9.6-11.0)
[2020-09-24] MEDS ORDERED: CALCIUM CHLORIDE 1GM/10ML SYR IV ONE (09:45)
[2020-09-24] MEDS ORDERED: SODIUM POLYSTYRENE SULFONATE 15 G/60 ML BOT PO ONE (09:45)
[2020-09-24] MEDS ORDERED: DEXTROSE 50% WATER 50ML SYRINGE IV ONE (09:45)
[2020-09-24] MEDS ORDERED: ALBUTEROL (0.083%) 2.5MG/3ML NEB HHN ONE (09:45)
[2020-09-24] MEDS ORDERED: SODIUM BICARBONATE 8.4% 1 MEQ/ML 50ML SYR IV ONE (09:45)
[2020-09-24] MEDS ORDERED: INSULIN REGULAR (HUMULIN R) 300UNITS/3ML VIAL IV ONE (09:45)
[2020-09-24] MEDS ORDERED: ALBUTEROL (0.5%) 2.5MG/0.5ML NEB HHN ONE (10:16)
[2020-09-24] MEDS ORDERED: DIPHENHYDRAMINE 50MG/ML VIAL IV PRN (13:00)
[2020-09-24] MEDS ORDERED: CLONIDINE 0.1MG TABLET PO PRN (13:00)
[2020-09-24] MEDS ORDERED: ACETAMINOPHEN 650MG/20.3ML UDC GT PRN (13:00)
[2020-09-24] MEDS ORDERED: ONDANSETRON HCL 4MG/2ML INJ IV PRN (13:00)
[2020-09-24] MEDS ORDERED: MAGNESIUM/ALUMINUM HYDROXIDE/SIMETHICONE 30ML UDC PO PRN (13:00)
[2020-09-24] MEDS: AMLODIPINE 10MG TABLET PO SCH (15:26)
[2020-09-24] MEDS: GABAPENTIN 100MG CAPSULE PO SCH ×2 (15:26→17:00)
[2020-09-24] MEDS ORDERED: DEXTROSE 50% WATER 50ML SYRINGE IV NR (16:30)
[2020-09-24] MEDS ORDERED: SODIUM BICARBONATE 8.4% 1 MEQ/ML 50ML SYR IV NR (16:33)
[2020-09-24] MEDS: LEVETIRACETAM 500MG TABLET PO SCH (17:00)
[2020-09-24] MEDS ORDERED: LIDOCAINE HCL 1% 20ML VIAL (Pyxis) INJ ONE (17:25)
[2020-09-24] MEDS ORDERED: HEPARIN 1000 UNITS/ML 10ML ONE (17:26)
[2020-09-24] MEDS ORDERED: CALCIUM GLUCONATE 100MG/ML 10ML VIAL IV NR (17:30)
[2020-09-24] MEDS ORDERED: INSULIN REGULAR (HUMULIN R) 300UNITS/3ML VIAL IV NR (17:30)
[2020-09-24] MEDS ORDERED: PHENYLEPHRINE 100 MG in DEXT 5% WATER 240 ML IV PRN (20:00)
[2020-09-24 20:12] LABS: HEPATITIS B SURFACE ANTIGEN NEGATIVE
[2020-09-24 20:42] LABS: HEPATITIS A AB IGM NEGATIVE (NEGATIVE)
[2020-09-24] MEDS ORDERED: HEPARIN SODIUM 1,000 UNIT/1ML VIAL IV NR (23:14)
[2020-09-25] VITALS (65 sets, daily range): BP systolic 52–179; BP diastolic 31–124
[2020-09-25] MEDS: HYDROCODONE/ACETAMINOPHEN 5/325MG TABLET PO PRN (03:12)
[2020-09-25 05:40] LABS: BASOPHILS % 0.7 % (0.0-2.0); EOSINOPHILS % 4.1 % (0.0-5.0); HEMATOCRIT. 28.1 % (42.0-52.0); HEMOGLOBIN. 9.1 g/dL (14.0-18.0); LYMPHOCYTES % 41.7 % (20.0-50.0); MEAN CORPUSCULAR VOLUME 89.3 fL (80.0-94.0); MONOCYTES % 8.3 % (2.0-8.0); NEUTROPHILS % 45.2 % (40.0-76.0); PLATELET 162 x1000/uL (130-400); RED BLOOD CELL COUNT 3.14 mill/uL (4.7-6.1); RED CELL DISTRIBUTION WIDTH 17.8 % (11.6-14.6)
[2020-09-25 05:53] LABS: CHLORIDE 100 mEq/L (98-107)
[2020-09-25] MEDS: GABAPENTIN 100MG CAPSULE PO SCH ×3 (08:39→17:04)
[2020-09-25] MEDS: LEVETIRACETAM 500MG TABLET PO SCH ×2 (08:39→17:04)
[2020-09-25] MEDS: AMLODIPINE 10MG TABLET PO SCH (09:00)
[2020-09-25] MEDS ORDERED: HEPARIN SODIUM 1,000 UNIT/1ML VIAL IV NR (16:58)
[2020-09-25] MEDS ORDERED: EPOETIN ALFA-EPBX 4,000 UNIT/ML VIAL SUBCUT SCH (21:00)
[2020-09-26] VITALS (27 sets, daily range): BP systolic 54–162; BP diastolic 15–94
[2020-09-26 05:35] LABS: BASOPHILS % 2.6 % (0.0-2.0); EOSINOPHILS % 4.1 % (0.0-5.0); HEMATOCRIT. 26.8 % (42.0-52.0); HEMOGLOBIN. 8.8 g/dL (14.0-18.0); LYMPHOCYTES % 39.9 % (20.0-50.0); MEAN CORPUSCULAR HEMOGLOBIN 29.2 pg (28.0-32.0); MEAN CORPUSCULAR VOLUME 89.2 fL (80.0-94.0); MONOCYTES % 6.1 % (2.0-8.0); NEUTROPHILS % 47.3 % (40.0-76.0); PLATELET 127 x1000/uL (130-400); RED CELL DISTRIBUTION WIDTH 17.7 % (11.6-14.6)
[2020-09-26] MEDS: HYDROCODONE/ACETAMINOPHEN 5/325MG TABLET PO PRN ×2 (06:17→11:39)
[2020-09-26] MEDS ORDERED: SODIUM CHLORIDE 0.9% 250 ML IV ONE (07:00)
[2020-09-26] MEDS: SODIUM CHLORIDE 0.9% 250 ML IV SCH (07:00)
[2020-09-26] MEDS: LEVETIRACETAM 500MG TABLET PO SCH ×2 (08:17→17:00)
[2020-09-26] MEDS: GABAPENTIN 100MG CAPSULE PO SCH ×3 (08:17→17:59)
[2020-09-26] MEDS: MIDODRINE HCL 5MG TABLET PO SCH ×2 (12:26→17:59)
[2020-09-27] VITALS (24 sets, daily range): BP systolic 54–133; BP diastolic 28–69
[2020-09-27] MEDS: SODIUM CHLORIDE 0.9% 250 ML IV SCH (07:34)
[2020-09-27] MEDS: GABAPENTIN 100MG CAPSULE PO SCH ×3 (08:59→17:12)
[2020-09-27] MEDS: LEVETIRACETAM 500MG TABLET PO SCH ×2 (08:59→17:12)
[2020-09-27 09:00] LABS: BASOPHILS % 1.8 % (0.0-2.0); HEMATOCRIT. 31.4 % (42.0-52.0); HEMOGLOBIN. 9.9 g/dL (14.0-18.0); LYMPHOCYTES % 41.6 % (20.0-50.0); MEAN CORPUSCULAR HEMOGLOBIN 28.4 pg (28.0-32.0); MEAN CORPUSCULAR VOLUME 89.9 fL (80.0-94.0); MEAN PLATELET VOLUME 9.4 fl (7.4-10.4); MONOCYTES % 10.5 % (2.0-8.0); NEUTROPHILS % 42.1 % (40.0-76.0); PLATELET 103 x1000/uL (130-400); RED BLOOD CELL COUNT 3.49 mill/uL (4.7-6.1); RED CELL DISTRIBUTION WIDTH 17.6 % (11.6-14.6)
[2020-09-27] MEDS ORDERED: MIDODRINE HCL 5MG TABLET PO SCH (09:00)
[2020-09-27] MEDS: MIDODRINE HCL 5MG TABLET PO SCH ×3 (09:00→17:13)
[2020-09-27 09:26] LABS: CHLORIDE 101 mEq/L (98-107)
[2020-09-27] MEDS ORDERED: CEFAZOLIN 1000MG PREMIX 50 ML IV ONE ×2 (09:43→10:45)
[2020-09-27] MEDS ORDERED: FENTANYL CITRATE/PF 50MCG/ML 2ML VIAL ONE (09:43)
[2020-09-27] MEDS ORDERED: LIDOCAINE HCL 1% 20ML VIAL (Pyxis) INJ ONE (09:44)
[2020-09-27] MEDS ORDERED: IOHEXOL-300 100 ML BOTTLE ONE (09:49)
[2020-09-27] MEDS ORDERED: CEFAZOLIN 1000MG PREMIX 50 ML IV SCH (10:45)
[2020-09-27] MEDS ORDERED: HEPARIN SODIUM 1,000 UNIT/1ML VIAL IV NR (15:45)
[2020-09-27 16:06] LABS: HEPATITIS B SURFACE ANTIGEN NEGATIVE
[2020-09-27 16:35] LABS: HEPATITIS A AB IGM NEGATIVE (NEGATIVE)
== END 2020-09-27 17:54 | disposition home or self-care (01) | DRG 673 ==
LOC: ER 07:19 → 6WST 09:19 → EDBEDREQTM 09:25 → EDBEDREQ 09:25 → ENRESERV 10:57 → CVICU 17:40 → 5EST 09-26 16:48
PROVIDERS: ADMIT Hospitalist; ATTEND Hospitalist
PROC: 0JBQ0ZZ Excision of Right Foot Subcutaneous Tissue and Fascia, Open Approach (ICD-10-PCS; principal; 2020-09-24)
PROC: 06HY33Z Insertion of Infusion Device into Lower Vein, Percutaneous Approach (ICD-10-PCS; 2020-09-24)
PROC: B54BZZA Ultrasonography of Right Lower Extremity Veins, Guidance (ICD-10-PCS; 2020-09-24)
PROC: 5A1D70Z Performance of Urinary Filtration, Intermittent, Less than 6 Hours Per Day (ICD-10-PCS; 2020-09-24)
PROC: 5A1D70Z Performance of Urinary Filtration, Intermittent, Less than 6 Hours Per Day (ICD-10-PCS; 2020-09-25)
PROC: 0JHP3XZ Insertion of Tunneled Vascular Access Device into Left Lower Leg Subcutaneous Tissue and Fascia, Percutaneous Approach (ICD-10-PCS; 2020-09-27)
PROC: B54CZZA Ultrasonography of Left Lower Extremity Veins, Guidance (ICD-10-PCS; 2020-09-27)
PROC: 06PY33Z Removal of Infusion Device from Lower Vein, Percutaneous Approach (ICD-10-PCS; 2020-09-27)
PROC: 06HY33Z Insertion of Infusion Device into Lower Vein, Percutaneous Approach (ICD-10-PCS; 2020-09-27)
PROC: 5A1D70Z Performance of Urinary Filtration, Intermittent, Less than 6 Hours Per Day (ICD-10-PCS; 2020-09-27)
DX: T82.42XA Displacement of vascular dialysis catheter, initial encounter (principal); I50.33 Acute on chronic diastolic (congestive) heart failure; N18.6 End stage renal disease; T81.30XA Disruption of wound, unspecified, initial encounter; I13.2 Hypertensive heart and chronic kidney disease with heart failure and with stage 5 chronic kidney disease, or end stage renal disease; I82.593 Chronic embolism and thrombosis of other specified deep vein of lower extremity, bilateral; E46 Unspecified protein-calorie malnutrition; D62 Acute posthemorrhagic anemia; N25.81 Secondary hyperparathyroidism of renal origin; D63.8 Anemia in other chronic diseases classified elsewhere; E66.09 Other obesity due to excess calories; E87.5 Hyperkalemia; G40.909 Epilepsy, unspecified, not intractable, without status epilepticus; I73.9 Peripheral vascular disease, unspecified; I95.89 Other hypotension; L08.9 Local infection of the skin and subcutaneous tissue, unspecified; Y83.8 Other surgical procedures as the cause of abnormal reaction of the patient, or of later complication, without mention of misadventure at the time of the procedure; M85.80 Other specified disorders of bone density and structure, unspecified site; E66.01 Morbid (severe) obesity due to excess calories; Z20.822 Contact with and (suspected) exposure to COVID-19; M19.90 Unspecified osteoarthritis, unspecified site; Y84.1 Kidney dialysis as the cause of abnormal reaction of the patient, or of later complication, without mention of misadventure at the time of the procedure; Z89.411 Acquired absence of right great toe; Y92.89 Other specified places as the place of occurrence of the external cause; Z82.49 Family history of ischemic heart disease and other diseases of the circulatory system; Z99.2 Dependence on renal dialysis; Z68.35 Body mass index [BMI] 35.0-35.9, adult
CPT/HCPCS: 36415; 36556; 36581; 36600; 71045; 73630; 75820; 77001; 80048; 80053; 82375; 82805; 83605; 84132; 84145; 84484; 85025; 85651; 86140; 86705; 86709; 86803; 87340; 87426; 93005; 93970; 94640; 99152; 99153; 99285; C1725; C1750; C1752; C1769; C1887; J0610; J0690; J0885; J1200; J1642; J1644; J1815; J2270; J2405; J3010; J3490; J7050; Q9967; G0500

== ENCOUNTER 2020-11-21 09:24 | Inpatient (IN) | payer MEDICARE, MEDICAID ==
[~2020-11-21] VITALS: Ht 172.7 cm; Wt 126.2 kg
[2020-11-21] MEDS ORDERED: CALCIUM GLUCONATE 1GM PREMIX 50 ML IV ONE (10:15)
[2020-11-21 10:23] LABS: BASOPHILS % 1.5 % (0.0-2.0); EOSINOPHILS % 4.5 % (0.0-5.0); HEMATOCRIT. 33.3 % (42.0-52.0); HEMOGLOBIN. 10.3 g/dL (14.0-18.0); LYMPHOCYTES % 37.3 % (20.0-50.0); MEAN CORPUSCULAR HEMOGLOBIN 28.1 pg (28.0-32.0); MEAN CORPUSCULAR VOLUME 90.6 fL (80.0-94.0); MEAN PLATELET VOLUME 10.1 fl (7.4-10.4); MONOCYTES % 12.5 % (2.0-8.0); NEUTROPHILS % 44.2 % (40.0-76.0); PLATELET 202 x1000/uL (130-400); RED BLOOD CELL COUNT 3.68 mill/uL (4.7-6.1); RED CELL DISTRIBUTION WIDTH 17.2 % (11.6-14.6)
[2020-11-21 10:31] LABS: CHLORIDE 108 mEq/L (98-107)
[2020-11-21 10:36] LABS: ETHANOL BLOOD < 10 mg/dL
[2020-11-21] MEDS ORDERED: FUROSEMIDE 100MG/10ML VIAL IV STA (10:44)
[2020-11-21] MEDS ORDERED: DEXTROSE 50% WATER 50ML SYRINGE IV ONE (10:45)
[2020-11-21] MEDS ORDERED: SODIUM BICARBONATE 8.4% 1 MEQ/ML 50ML SYR IV ONE (10:45)
[2020-11-21] MEDS ORDERED: INSULIN REGULAR (HUMULIN R) 300UNITS/3ML VIAL IV ONE (10:45)
[2020-11-21] MEDS ORDERED: SODIUM POLYSTYRENE SULFONATE 15 G/60 ML BOT PO ONE (10:45)
[2020-11-21] MEDS ORDERED: CEFTRIAXONE 2 G PREMIX 50 ML IV NR (11:45)
[2020-11-21] MEDS ORDERED: CLONIDINE 0.1MG TABLET PO PRN (12:15)
[2020-11-21] MEDS ORDERED: ACETAMINOPHEN 325MG TABLET PO PRN (12:15)
[2020-11-21] MEDS ORDERED: LORAZEPAM 2MG/ML CPJ IV PRN (12:15)
[2020-11-21] MEDS ORDERED: GUAIFENESIN 200MG/10ML SUGAR FREE UDC PO PRN (12:15)
[2020-11-21] MEDS ORDERED: DOCUSATE SODIUM 100MG CAPSULE PO PRN (12:15)
[2020-11-21] MEDS ORDERED: DIPHENHYDRAMINE 50MG/ML VIAL IV PRN (12:15)
[2020-11-21] MEDS ORDERED: MAGNESIUM/ALUMINUM HYDROXIDE/SIMETHICONE 30ML UDC PO PRN (12:15)
[2020-11-21] MEDS ORDERED: IPRATROPIUM/ALBUTEROL 0.5-3(2.5)MG/3ML NEB NEB PRN (12:15)
[2020-11-21] MEDS ORDERED: NITROGLYCERIN 0.4MG TABLET SL SL PRN (12:15)
[2020-11-21] MEDS ORDERED: NALOXONE HCL 0.4MG/ML VIAL IV PRN (12:45)
[2020-11-21] MEDS: SEVELAMER CARBONATE 800 MG TABLET PO SCH ×2 (13:00→17:00)
[2020-11-21 14:47] LABS: FERRITIN 1106 ng/mL (22-322)
[2020-11-21 14:49] LABS: FOLIC ACID (FOLATE) SERUM 16.2 ng/mL (>5.38)
[2020-11-21 14:58] LABS: HEPATITIS B SURFACE ANTIGEN NEGATIVE
[2020-11-21 15:28] LABS: HEPATITIS A AB IGM NEGATIVE (NEGATIVE)
[2020-11-21] MEDS: ENOXAPARIN 40MG/0.4ML SYR SUBCUT SCH (16:07)
[2020-11-21 16:17] LABS: CREATINE KINASE 162 IU/L (39-308)
[2020-11-21 16:18] LABS: CREATINE KINASE MB FRACTION 3.1 ng/mL (0.5-3.6)
[2020-11-21] MEDS ORDERED: ZOLPIDEM TARTRATE 5MG TABLET PO PRN (21:00)
[2020-11-21] MEDS ORDERED: ALTEPLASE 2MG/VIAL ITC NR (22:00)
[2020-11-21] MEDS: LEVETIRACETAM 500MG TABLET PO SCH (22:23)
[2020-11-21] MEDS: ASCORBIC ACID 500 MG TABLET PO SCH (22:23)
[2020-11-21] MEDS: FAMOTIDINE 20MG TABLET PO SCH (22:23)
[2020-11-22] VITALS: BP 124/61
[2020-11-22 01:01] LABS: CREATINE KINASE 162 IU/L (39-308)
[2020-11-22 01:02] LABS: CREATINE KINASE MB FRACTION 3.1 ng/mL (0.5-3.6)
[2020-11-22] MEDS: TRAMADOL 50MG TABLET PO PRN ×2 (01:11→16:19)
[2020-11-22 03:35] VITALS: BP 124/61
[2020-11-22] MEDS: SEVELAMER CARBONATE 800 MG TABLET PO SCH ×3 (07:10→16:08)
[2020-11-22 08:00] VITALS: BP 100/81
[2020-11-22 08:45] LABS: BASOPHILS % 1.2 % (0.0-2.0); EOSINOPHILS % 3.3 % (0.0-5.0); HEMATOCRIT. 25.7 % (42.0-52.0); HEMOGLOBIN. 8.4 g/dL (14.0-18.0); LYMPHOCYTES % 29.9 % (20.0-50.0); MEAN CORPUSCULAR HEMOGLOBIN 28.4 pg (28.0-32.0); MEAN CORPUSCULAR VOLUME 87.5 fL (80.0-94.0); MEAN PLATELET VOLUME 10.1 fl (7.4-10.4); MONOCYTES % 14.6 % (2.0-8.0); PLATELET 123 x1000/uL (130-400); RED BLOOD CELL COUNT 2.94 mill/uL (4.7-6.1); RED CELL DISTRIBUTION WIDTH 17.3 % (11.6-14.6)
[2020-11-22] MEDS: CHOLECALCIFEROL (D3) 1000 UNIT TABLET PO SCH (09:00)
[2020-11-22] MEDS: ZINC SULFATE 220 MG ( 50 ) CAPSULE PO SCH (09:00)
[2020-11-22] MEDS: LEVETIRACETAM 500MG TABLET PO SCH ×2 (09:00→20:51)
[2020-11-22] MEDS: ASCORBIC ACID 500 MG TABLET PO SCH ×2 (09:00→20:51)
[2020-11-22] MEDS: ROPINIROLE HCL 1MG TABLET PO SCH (09:00)
[2020-11-22] MEDS: ASPIRIN 81MG EC TABLET PO SCH (09:00)
[2020-11-22 09:11] LABS: CHLORIDE 108 mEq/L (98-107)
[2020-11-22 09:17] LABS: PHOSPHORUS 5.9 mg/dL (2.5-4.9)
[2020-11-22] MEDS ORDERED: HEPARIN SODIUM 1,000 UNIT/1ML VIAL IV NR (09:30)
[2020-11-22] MEDS ORDERED: ALTEPLASE 2MG/VIAL ITC SCH (11:30)
[2020-11-22 12:20] VITALS: BP 152/83
[2020-11-22] MEDS: ENOXAPARIN 40MG/0.4ML SYR SUBCUT SCH (12:31)
[2020-11-22 13:55] LABS: INR 1.2; PROTHROMBIN TIME 12.6 sec (9.6-11.0)
[2020-11-22 16:00] VITALS: BP 121/48
[2020-11-22 20:00] VITALS: BP 119/68
[2020-11-22] MEDS: FAMOTIDINE 20MG TABLET PO SCH (20:51)
[2020-11-23] VITALS: BP 116/64
[2020-11-23 04:00] VITALS: BP 135/72
[2020-11-23] MEDS: ONDANSETRON HCL 4MG/2ML INJ IV PRN ×3 (05:13→22:37)
[2020-11-23] MEDS: SEVELAMER CARBONATE 800 MG TABLET PO SCH ×3 (06:34→17:45)
[2020-11-23 08:00] VITALS: BP 147/98
[2020-11-23] MEDS: ROPINIROLE HCL 1MG TABLET PO SCH (08:25)
[2020-11-23] MEDS: ASPIRIN 81MG EC TABLET PO SCH (08:25)
[2020-11-23] MEDS: LEVETIRACETAM 500MG TABLET PO SCH ×2 (08:25→20:51)
[2020-11-23] MEDS: CHOLECALCIFEROL (D3) 1000 UNIT TABLET PO SCH (08:25)
[2020-11-23] MEDS: ASCORBIC ACID 500 MG TABLET PO SCH ×2 (08:25→20:51)
[2020-11-23] MEDS: ZINC SULFATE 220 MG ( 50 ) CAPSULE PO SCH (08:25)
[2020-11-23 11:44] VITALS: BP_SYST 135; BP_SYST 146; BP_DIAS 67; BP_DIAS 70
[2020-11-23] MEDS: ENOXAPARIN 40MG/0.4ML SYR SUBCUT SCH (12:42)
[2020-11-23 16:00] VITALS: BP 127/55
[2020-11-23] MEDS: CEFTRIAXONE 2 G in DEXTROSE 5% WATER 50 ML IV SCH (18:44)
[2020-11-23] MEDS ORDERED: CEFTRIAXONE 2 G PREMIX 50 ML IV SCH (19:30)
[2020-11-23 20:00] VITALS: BP 114/54
[2020-11-23] MEDS: FAMOTIDINE 20MG TABLET PO SCH (20:51)
[2020-11-23] MEDS: ACETAMINOPHEN 325MG TABLET PO PRN (22:38)
[2020-11-23] MEDS ORDERED: EPOETIN ALFA-EPBX 10,000 UNIT/ML VIAL SUBCUT SCH (23:00)
[2020-11-24] VITALS: BP_SYST 114; BP_DIAS 54; BP_DIAS 70
[2020-11-24 00:10] LABS: HEPATITIS B SURFACE ANTIGEN NEGATIVE
[2020-11-24 00:40] LABS: HEPATITIS A AB IGM NEGATIVE (NEGATIVE)
[2020-11-24 04:00] VITALS: BP 104/63
[2020-11-24] MEDS: ACETAMINOPHEN 325MG TABLET PO PRN (04:11)
[2020-11-24] MEDS: SEVELAMER CARBONATE 800 MG TABLET PO SCH ×3 (06:27→17:29)
[2020-11-24 07:33] LABS: HEMOGLOBIN 10.1 g/dL (14.0-18.0); MEAN CORPUSCULAR VOLUME 91.2 fL (80.0-94.0); PLATELET 124 x1000/uL (130-400); RED BLOOD CELL COUNT 3.61 mill/uL (4.7-6.1); RED CELL DISTRIBUTION WIDTH 18.3 % (11.6-14.6)
[2020-11-24 08:00] VITALS: BP 114/47
[2020-11-24] MEDS ORDERED: SODIUM POLYSTYRENE SULFONATE 15 G/60 ML BOT PO SCH (08:00)
[2020-11-24] MEDS: TRAMADOL 50MG TABLET PO PRN (09:44)
[2020-11-24] MEDS: CHOLECALCIFEROL (D3) 1000 UNIT TABLET PO SCH (09:44)
[2020-11-24] MEDS: LEVETIRACETAM 500MG TABLET PO SCH ×2 (09:44→21:59)
[2020-11-24] MEDS: ROPINIROLE HCL 1MG TABLET PO SCH (09:45)
[2020-11-24] MEDS: ASPIRIN 81MG EC TABLET PO SCH (09:45)
[2020-11-24] MEDS: ASCORBIC ACID 500 MG TABLET PO SCH ×2 (09:45→21:59)
[2020-11-24] MEDS: ZINC SULFATE 220 MG ( 50 ) CAPSULE PO SCH (09:45)
[2020-11-24] MEDS: ONDANSETRON HCL 4MG/2ML INJ IV PRN (09:57)
[2020-11-24] MEDS: ENOXAPARIN 40MG/0.4ML SYR SUBCUT SCH (12:34)
[2020-11-24] MEDS ORDERED: HEPARIN SODIUM 1,000 UNIT/1ML VIAL IV SCH (13:00)
[2020-11-24 16:00] VITALS: BP 147/75
[2020-11-24] MEDS: CEFTRIAXONE 2 G in DEXTROSE 5% WATER 50 ML IV SCH (17:29)
[2020-11-24] MEDS: HYDROCODONE/ACETAMINOPHEN 10/325MG TABLET PO PRN (17:29)
[2020-11-24 20:00] VITALS: BP 113/60
[2020-11-24] MEDS: FAMOTIDINE 20MG TABLET PO SCH (21:58)
[2020-11-25] VITALS: BP 119/73
[2020-11-25 04:00] VITALS: BP 124/70
[2020-11-25 08:00] VITALS: BP 132/71
[2020-11-25] MEDS: CHOLECALCIFEROL (D3) 1000 UNIT TABLET PO SCH (08:44)
[2020-11-25] MEDS: ROPINIROLE HCL 1MG TABLET PO SCH (08:44)
[2020-11-25] MEDS: LEVETIRACETAM 500MG TABLET PO SCH ×2 (08:44→20:40)
[2020-11-25] MEDS: SEVELAMER CARBONATE 800 MG TABLET PO SCH ×3 (08:44→17:10)
[2020-11-25] MEDS: ZINC SULFATE 220 MG ( 50 ) CAPSULE PO SCH (08:44)
[2020-11-25] MEDS: ASCORBIC ACID 500 MG TABLET PO SCH ×2 (08:44→20:40)
[2020-11-25] MEDS: ASPIRIN 81MG EC TABLET PO SCH (08:44)
[2020-11-25 12:00] VITALS: BP 135/83
[2020-11-25] MEDS: HYDROCODONE/ACETAMINOPHEN 10/325MG TABLET PO PRN (12:57)
[2020-11-25] MEDS: ENOXAPARIN 40MG/0.4ML SYR SUBCUT SCH (12:57)
[2020-11-25 16:00] VITALS: BP 123/67
[2020-11-25] MEDS: CEFTRIAXONE 2 G in DEXTROSE 5% WATER 50 ML IV SCH (18:08)
[2020-11-25 20:00] VITALS: BP 134/49
[2020-11-25] MEDS: FAMOTIDINE 20MG TABLET PO SCH (20:41)
[2020-11-26] VITALS: BP 122/46
[2020-11-26 04:00] VITALS: BP 134/58
[2020-11-26] MEDS: SEVELAMER CARBONATE 800 MG TABLET PO SCH ×3 (06:17→17:44)
[2020-11-26 08:00] VITALS: BP_SYST 124; BP_SYST 144; BP_DIAS 50; BP_DIAS 54
[2020-11-26] MEDS: ASCORBIC ACID 500 MG TABLET PO SCH ×2 (09:13→20:17)
[2020-11-26] MEDS: ROPINIROLE HCL 1MG TABLET PO SCH (09:13)
[2020-11-26] MEDS: LEVETIRACETAM 500MG TABLET PO SCH ×2 (09:13→20:17)
[2020-11-26] MEDS: ZINC SULFATE 220 MG ( 50 ) CAPSULE PO SCH (09:14)
[2020-11-26] MEDS: CHOLECALCIFEROL (D3) 1000 UNIT TABLET PO SCH (09:14)
[2020-11-26] MEDS: ASPIRIN 81MG EC TABLET PO SCH (09:14)
[2020-11-26 12:00] VITALS: BP 124/50
[2020-11-26] MEDS: ENOXAPARIN 40MG/0.4ML SYR SUBCUT SCH (12:06)
[2020-11-26 16:00] VITALS: BP 114/47
[2020-11-26] MEDS: CEFTRIAXONE 2 G in DEXTROSE 5% WATER 50 ML IV SCH (17:45)
[2020-11-26 20:00] VITALS: BP 113/54
[2020-11-26] MEDS: FAMOTIDINE 20MG TABLET PO SCH (20:17)
[2020-11-27] VITALS: BP 123/46
[2020-11-27 04:00] VITALS: BP 122/58
[2020-11-27 08:00] VITALS: BP 138/59
[2020-11-27] MEDS: SEVELAMER CARBONATE 800 MG TABLET PO SCH (08:22)
[2020-11-27] MEDS: ROPINIROLE HCL 1MG TABLET PO SCH (08:22)
[2020-11-27] MEDS: ASPIRIN 81MG EC TABLET PO SCH (08:22)
[2020-11-27] MEDS: ASCORBIC ACID 500 MG TABLET PO SCH (08:22)
[2020-11-27] MEDS: LEVETIRACETAM 500MG TABLET PO SCH (08:22)
[2020-11-27] MEDS: ZINC SULFATE 220 MG ( 50 ) CAPSULE PO SCH (08:22)
[2020-11-27] MEDS: CHOLECALCIFEROL (D3) 1000 UNIT TABLET PO SCH (08:22)
[2020-11-27] MEDS: HYDROCODONE/ACETAMINOPHEN 10/325MG TABLET PO PRN (08:52)
[2020-11-27 09:53] VITALS: BP 138/59
== END 2020-11-27 12:00 | disposition home health service (06) | DRG 901 ==
LOC: ER 09:24 → MICUSO 11:40 → SUPCPDRO 12:06 → 7EST 17:13
PROVIDERS: ADMIT Internal Medicine; ATTEND Internal Medicine
PROC: 5A1D70Z Performance of Urinary Filtration, Intermittent, Less than 6 Hours Per Day (ICD-10-PCS; 2020-11-21)
PROC: 0JBQ0ZZ Excision of Right Foot Subcutaneous Tissue and Fascia, Open Approach (ICD-10-PCS; principal; 2020-11-22)
PROC: 5A1D70Z Performance of Urinary Filtration, Intermittent, Less than 6 Hours Per Day (ICD-10-PCS; 2020-11-22)
PROC: 5A1D70Z Performance of Urinary Filtration, Intermittent, Less than 6 Hours Per Day (ICD-10-PCS; 2020-11-23)
PROC: 0JBQ0ZZ Excision of Right Foot Subcutaneous Tissue and Fascia, Open Approach (ICD-10-PCS; 2020-11-25)
PROC: 5A1D70Z Performance of Urinary Filtration, Intermittent, Less than 6 Hours Per Day (ICD-10-PCS; 2020-11-25)
DX: T81.31XA Disruption of external operation (surgical) wound, not elsewhere classified, initial encounter (principal); I50.33 Acute on chronic diastolic (congestive) heart failure; N18.6 End stage renal disease; T82.41XA Breakdown (mechanical) of vascular dialysis catheter, initial encounter; I13.2 Hypertensive heart and chronic kidney disease with heart failure and with stage 5 chronic kidney disease, or end stage renal disease; N25.81 Secondary hyperparathyroidism of renal origin; E46 Unspecified protein-calorie malnutrition; I82.412 Acute embolism and thrombosis of left femoral vein; I82.492 Acute embolism and thrombosis of other specified deep vein of left lower extremity; M86.8X7 Other osteomyelitis, ankle and foot; Z68.41 Body mass index [BMI] 40.0-44.9, adult; I25.10 Atherosclerotic heart disease of native coronary artery without angina pectoris; G89.4 Chronic pain syndrome; G40.909 Epilepsy, unspecified, not intractable, without status epilepticus; G20 Parkinson's disease; D63.8 Anemia in other chronic diseases classified elsewhere; E83.51 Hypocalcemia; E87.5 Hyperkalemia; Z99.2 Dependence on renal dialysis; E66.09 Other obesity due to excess calories; I95.89 Other hypotension; I73.9 Peripheral vascular disease, unspecified; E87.70 Fluid overload, unspecified; Y84.8 Other medical procedures as the cause of abnormal reaction of the patient, or of later complication, without mention of misadventure at the time of the procedure; Y92.89 Other specified places as the place of occurrence of the external cause; Y71.2 Prosthetic and other implants, materials and accessory cardiovascular devices associated with adverse incidents; M19.90 Unspecified osteoarthritis, unspecified site; Z89.422 Acquired absence of other left toe(s); Z89.421 Acquired absence of other right toe(s); Z91.15 Patient's noncompliance with renal dialysis; Z82.49 Family history of ischemic heart disease and other diseases of the circulatory system; Z86.718 Personal history of other venous thrombosis and embolism; Z20.822 Contact with and (suspected) exposure to COVID-19
CPT/HCPCS: 36415; 71045; 80048; 80053; 80061; 80320; 82550; 82553; 82607; 82728; 82746; 83036; 83540; 83550; 83735; 83880; 84100; 84145; 84484; 85025; 85027; 86705; 86709; 86803; 87340; 87426; 93005; 93970; 94640; 99291; J0610; J0696; J0885; J1200; J1644; J1650; J1815; J1940; J2405; J2997; J3490; J7060; G0480

== ENCOUNTER 2020-12-04 08:05 | Inpatient (IN) | payer MEDICARE, MEDICAID ==
[~2020-12-04] VITALS: Ht 172.7 cm; Wt 132.9 kg
[2020-12-04 09:24] LABS: BASOPHILS % 0.7 % (0.0-2.0); EOSINOPHILS % 2.4 % (0.0-5.0); HEMATOCRIT. 37.5 % (42.0-52.0); LYMPHOCYTES % 20.6 % (20.0-50.0); MEAN CORPUSCULAR HEMOGLOBIN 27.8 pg (28.0-32.0); MEAN CORPUSCULAR VOLUME 94.9 fL (80.0-94.0); MEAN PLATELET VOLUME 10.4 fl (7.4-10.4); MONOCYTES % 7.4 % (2.0-8.0); NEUTROPHILS % 68.9 % (40.0-76.0); PLATELET 132 x1000/uL (130-400); RED BLOOD CELL COUNT 3.95 mill/uL (4.7-6.1); RED CELL DISTRIBUTION WIDTH 17.8 % (11.6-14.6)
[2020-12-04 09:28] LABS: CHLORIDE 106 mEq/L (98-107)
[2020-12-04] MEDS ORDERED: FUROSEMIDE 100MG/10ML VIAL IV STA (09:57)
[2020-12-04] MEDS ORDERED: ALBUTEROL (0.083%) 2.5MG/3ML NEB HHN ONE (10:00)
[2020-12-04] MEDS ORDERED: DEXTROSE 50% WATER 50ML SYRINGE IV ONE (10:00)
[2020-12-04] MEDS ORDERED: SODIUM BICARBONATE 8.4% 1 MEQ/ML 50ML SYR IV ONE (10:00)
[2020-12-04] MEDS ORDERED: CALCIUM CHLORIDE 1GM/10ML SYR IV ONE (10:00)
[2020-12-04] MEDS ORDERED: INSULIN REGULAR (HUMULIN R) 300UNITS/3ML VIAL IV ONE (10:00)
[2020-12-04 10:04] LABS: INR 1.2; PROTHROMBIN TIME 12.6 sec (9.6-11.0)
[2020-12-04] MEDS ORDERED: KETOROLAC 30MG/ML VIAL IV ONE (11:00)
[2020-12-04] MEDS ORDERED: CLONIDINE 0.1MG TABLET PO PRN (22:00)
[2020-12-04] MEDS ORDERED: ACETAMINOPHEN 650MG SUPP PR PRN ×2 (22:00)
[2020-12-04] MEDS ORDERED: DOCUSATE SODIUM 100MG CAPSULE PO PRN (22:00)
[2020-12-04] MEDS ORDERED: MAGNESIUM/ALUMINUM HYDROXIDE/SIMETHICONE 30ML UDC PO PRN (22:00)
[2020-12-04] MEDS ORDERED: GUAIFENESIN 200MG/10ML SUGAR FREE UDC PO PRN (22:00)
[2020-12-04] MEDS ORDERED: NA PHOS,M-B/NA PHOS,DI-BA ENEMA 118ML PR PRN (22:00)
[2020-12-04] MEDS ORDERED: ACETAMINOPHEN 650MG/20.3ML UDC GT PRN ×2 (22:00)
[2020-12-04] MEDS ORDERED: DIPHENHYDRAMINE 50MG/ML VIAL IV PRN (22:00)
[2020-12-04] MEDS ORDERED: DEXTROSE 50% WATER 50ML SYRINGE IV NR (22:30)
[2020-12-04] MEDS ORDERED: SODIUM BICARBONATE 8.4% 1 MEQ/ML 50ML SYR IV NR (22:30)
[2020-12-04] MEDS ORDERED: CALCIUM CHLORIDE 1,000 MG in DEXT 5% WATER 90 ML IV NR (23:00)
[2020-12-04] MEDS ORDERED: INSULIN REGULAR (HUMULIN R) UD 100 UNITS/ML SYR IV NR (23:00)
[2020-12-04] MEDS ORDERED: SODIUM POLYSTYRENE SULFONATE 15 G/60 ML BOT PO NR (23:00)
[2020-12-05] VITALS: BP_SYST 127; BP_SYST 157; BP_DIAS 54; BP_DIAS 80
[2020-12-05] MEDS ORDERED: ALTEPLASE 2MG/VIAL ITC SCH (00:15)
[2020-12-05] MEDS: ONDANSETRON HCL 4MG/2ML INJ IV PRN (00:30)
[2020-12-05] MEDS: HYDROCODONE/ACETAMINOPHEN 10/325MG TABLET PO PRN ×2 (00:34→06:53)
[2020-12-05 00:54] LABS: HEPATITIS B SURFACE ANTIGEN NEGATIVE
[2020-12-05 04:00] VITALS: BP 103/45
[2020-12-05 08:00] VITALS: BP 149/70
[2020-12-05 08:22] LABS: BASOPHILS % 1.3 % (0.0-2.0); EOSINOPHILS % 5.1 % (0.0-5.0); HEMATOCRIT. 36.6 % (42.0-52.0); LYMPHOCYTES % 15.9 % (20.0-50.0); MEAN CORPUSCULAR HEMOGLOBIN 27.5 pg (28.0-32.0); MEAN CORPUSCULAR VOLUME 91.1 fL (80.0-94.0); MEAN PLATELET VOLUME 10.8 fl (7.4-10.4); MONOCYTES % 10.2 % (2.0-8.0); NEUTROPHILS % 67.5 % (40.0-76.0); PLATELET 172 x1000/uL (130-400); RED BLOOD CELL COUNT 4.02 mill/uL (4.7-6.1); RED CELL DISTRIBUTION WIDTH 17.3 % (11.6-14.6)
[2020-12-05 08:31] LABS: CHLORIDE 103 mEq/L (98-107)
[2020-12-05 08:42] LABS: LDL CHOLESTEROL 47 mg/dL (5-100)
[2020-12-05 08:44] LABS: HDL CHOLESTEROL 43 mg/dL (40-59)
[2020-12-05] MEDS: DIPHENHYDRAMINE 50MG/ML VIAL IV PRN (09:46)
[2020-12-05 12:00] VITALS: BP 177/41
[2020-12-05] MEDS ORDERED: SODIUM POLYSTYRENE SULFONATE 15 G/60 ML BOT PO NR (14:00)
[2020-12-05 16:00] VITALS: BP 105/45
[2020-12-05 20:00] VITALS: BP 97/40
[2020-12-05 22:19] LABS: HEPATITIS B SURFACE ANTIGEN NEGATIVE
[2020-12-06] VITALS (25 sets, daily range): BP systolic 79–125; BP diastolic 26–81
[2020-12-06 07:48] LABS: BASOPHILS % 0.5 % (0.0-2.0); EOSINOPHILS % 3.1 % (0.0-5.0); HEMATOCRIT. 28.9 % (42.0-52.0); HEMOGLOBIN. 9.1 g/dL (14.0-18.0); LYMPHOCYTES % 22.9 % (20.0-50.0); MEAN CORPUSCULAR HEMOGLOBIN 27.6 pg (28.0-32.0); MEAN CORPUSCULAR VOLUME 87.9 fL (80.0-94.0); MEAN PLATELET VOLUME 10.6 fl (7.4-10.4); MONOCYTES % 13.1 % (2.0-8.0); NEUTROPHILS % 60.4 % (40.0-76.0); PLATELET 127 x1000/uL (130-400); RED BLOOD CELL COUNT 3.29 mill/uL (4.7-6.1); RED CELL DISTRIBUTION WIDTH 17.3 % (11.6-14.6)
[2020-12-06] MEDS ORDERED: HYDROCODONE/ACETAMINOPHEN 5/325MG TABLET PO PRN (08:30)
[2020-12-06] MEDS ORDERED: NALOXONE HCL 0.4MG/ML VIAL IV PRN (08:30)
[2020-12-06] MEDS ORDERED: CEFAZOLIN 1000MG PREMIX 50 ML IV ONE ×2 (08:31→09:00)
[2020-12-06] MEDS ORDERED: IOHEXOL-300 50 ML BOTTLE IV ONE (08:37)
[2020-12-06] MEDS ORDERED: LIDOCAINE HCL 1% 20ML VIAL (Pyxis) INJ ONE ×2 (08:37→09:48)
[2020-12-06] MEDS ORDERED: HEPARIN 1000 UNITS/ML 10ML ONE (08:37)
[2020-12-06] MEDS: HYDROCODONE/ACETAMINOPHEN 10/325MG TABLET PO PRN ×3 (08:58→23:08)
[2020-12-06] MEDS ORDERED: VANCOMYCIN 1 G PREMIX 200 ML IV NR (09:30)
[2020-12-06] MEDS ORDERED: FENTANYL CITRATE/PF 50MCG/ML 2ML VIAL ONE (09:38)
[2020-12-06] MEDS ORDERED: FENTANYL CITRATE/PF 50MCG/ML 2ML VIAL IV ONE (10:00)
[2020-12-06] MEDS ORDERED: SODIUM POLYSTYRENE SULFONATE 15 G/60 ML BOT PO NR (12:00)
[2020-12-06 13:42] LABS: HEMATOCRIT 34.2 % (42.0-52.0); HEMOGLOBIN 9.3 g/dL (14.0-18.0); MEAN CORPUSCULAR HEMOGLOBIN 27.2 pg (28.0-32.0); MEAN CORPUSCULAR VOLUME 99.8 fL (80.0-94.0); PLATELET 128 x1000/uL (130-400); RED BLOOD CELL COUNT 3.43 mill/uL (4.7-6.1); RED CELL DISTRIBUTION WIDTH 18.8 % (11.6-14.6)
[2020-12-06 13:48] LABS: INR 1.2; PROTHROMBIN TIME 12.3 sec (9.6-11.0)
[2020-12-06] MEDS: DIPHENHYDRAMINE 50MG/ML VIAL IV PRN (18:59)
[2020-12-07 04:00] VITALS: BP 137/69
[2020-12-07] MEDS ORDERED: HEPARIN SODIUM 1,000 UNIT/1ML VIAL IV SCH ×2 (05:30)
[2020-12-07] MEDS: HYDROCODONE/ACETAMINOPHEN 10/325MG TABLET PO PRN (07:02)
[2020-12-07 08:00] VITALS: BP 138/72
[2020-12-07] MEDS: SODIUM POLYSTYRENE SULFONATE 15 G/60 ML BOT PO SCH (08:40)
[2020-12-07] MEDS ORDERED: ALTEPLASE 2MG/VIAL ITC NR (09:00)
[2020-12-07 12:00] VITALS: BP 140/84
[2020-12-07 16:00] VITALS: BP 108/57
[2020-12-07 20:55] VITALS: BP 95/71
[2020-12-08] VITALS: BP 112/54
[2020-12-08 04:00] VITALS: BP 119/75
[2020-12-08 08:00] VITALS: BP 134/79
[2020-12-08] MEDS: SODIUM POLYSTYRENE SULFONATE 15 G/60 ML BOT PO SCH (08:44)
[2020-12-08 12:00] VITALS: BP 111/88
[2020-12-08] MEDS ORDERED: HEPARIN SODIUM 1,000 UNIT/1ML VIAL IV NR (13:00)
[2020-12-08] MEDS ORDERED: CALCIUM GLUCONATE 100MG/ML 10ML VIAL IV ONE (13:30)
[2020-12-08] MEDS ORDERED: CALCIUM GLUCONATE 1GM PREMIX 50 ML IV NR (15:00)
[2020-12-08 16:00] VITALS: BP 105/51
[2020-12-08] MEDS ORDERED: VANCOMYCIN 750 MG PREMIX 150 ML IV SCH (18:00)
[2020-12-08] MEDS: CALCIUM ACETATE 667MG CAPSULE PO SCH (18:09)
[2020-12-08 20:00] VITALS: BP 124/66
[2020-12-09] VITALS: BP 148/77
[2020-12-09 04:00] VITALS: BP 136/61
[2020-12-09] MEDS: HYDROCODONE/ACETAMINOPHEN 10/325MG TABLET PO PRN ×2 (05:49→18:16)
[2020-12-09 08:00] VITALS: BP 127/49
[2020-12-09] MEDS: CALCIUM ACETATE 667MG CAPSULE PO SCH ×3 (08:14→17:15)
[2020-12-09] MEDS: SODIUM POLYSTYRENE SULFONATE 15 G/60 ML BOT PO SCH (08:15)
[2020-12-09 10:32] LABS: BASOPHILS % 0.5 % (0.0-2.0); EOSINOPHILS % 2.4 % (0.0-5.0); HEMATOCRIT. 28.5 % (42.0-52.0); HEMOGLOBIN. 9.2 g/dL (14.0-18.0); LYMPHOCYTES % 16.4 % (20.0-50.0); MEAN CORPUSCULAR HEMOGLOBIN 27.8 pg (28.0-32.0); MEAN PLATELET VOLUME 10.1 fl (7.4-10.4); MONOCYTES % 10.6 % (2.0-8.0); NEUTROPHILS % 70.1 % (40.0-76.0); PLATELET 112 x1000/uL (130-400); RED BLOOD CELL COUNT 3.31 mill/uL (4.7-6.1); RED CELL DISTRIBUTION WIDTH 17.1 % (11.6-14.6)
[2020-12-09 10:48] LABS: CHLORIDE 101 mEq/L (98-107)
[2020-12-09 12:00] VITALS: BP 107/66
[2020-12-09] MEDS ORDERED: CALCIUM GLUCONATE 100MG/ML 10ML VIAL IV ONE (13:15)
[2020-12-09] MEDS ORDERED: CALCIUM GLUCONATE 1GM PREMIX 50 ML IV NR (14:30)
[2020-12-09 16:00] VITALS: BP 96/56
[2020-12-09 16:13] LABS: HEPATITIS B SURFACE ANTIGEN NEGATIVE
[2020-12-09 20:00] VITALS: BP 125/53
[2020-12-10] VITALS: BP 103/58
[2020-12-10 04:00] VITALS: BP 121/30
[2020-12-10] MEDS ORDERED: ALTEPLASE 2MG/VIAL ITC NR (04:30)
[2020-12-10] MEDS ORDERED: HEPARIN SODIUM 1,000 UNIT/1ML VIAL IV NR (05:00)
[2020-12-10] MEDS: CALCIUM ACETATE 667MG CAPSULE PO SCH ×3 (07:10→17:41)
[2020-12-10] MEDS: HEPARIN SODIUM 1,000 UNIT/1ML VIAL IV SCH ×3 (07:10→08:53)
[2020-12-10 08:00] VITALS: BP 149/67
[2020-12-10] MEDS: SODIUM POLYSTYRENE SULFONATE 15 G/60 ML BOT PO SCH (08:15)
[2020-12-10] MEDS: MORPHINE SULFATE 2 MG/ML CPJ (NOT FOR IM USE) IV PRN ×2 (10:33→18:24)
[2020-12-10 12:00] VITALS: BP 119/46
[2020-12-10 16:00] VITALS: BP 110/77
[2020-12-10] MEDS: ACETAMINOPHEN 325MG TABLET PO PRN (18:27)
[2020-12-10 20:00] VITALS: BP 124/88
[2020-12-10] MEDS: SILVER SULFADIAZINE 1% CREAM 25GM TOP SCH (20:56)
[2020-12-10] MEDS ORDERED: VANCOMYCIN 750 MG PREMIX 150 ML IV NR (22:00)
[2020-12-11] VITALS (7 sets, daily range): BP systolic 98–157; BP diastolic 44–97
[2020-12-11] MEDS: CALCIUM ACETATE 667MG CAPSULE PO SCH ×3 (05:44→17:45)
[2020-12-11] MEDS: SODIUM POLYSTYRENE SULFONATE 15 G/60 ML BOT PO SCH (09:31)
[2020-12-11] MEDS: MORPHINE SULFATE 2 MG/ML CPJ (NOT FOR IM USE) IV PRN ×2 (09:37→18:20)
[2020-12-11] MEDS: SILVER SULFADIAZINE 1% CREAM 25GM TOP SCH ×2 (09:38→21:59)
[2020-12-11] MEDS ORDERED: LACTULOSE 20G/30ML UDC PO SCH (13:45)
[2020-12-11] MEDS: ONDANSETRON HCL 4MG/2ML INJ IV PRN (13:53)
[2020-12-11] MEDS ORDERED: LACTULOSE 20G/30ML UDC PO PRN (14:00)
[2020-12-11] MEDS: ACETAMINOPHEN 325MG TABLET PO PRN (17:46)
[2020-12-11 18:00] LABS: HEPATITIS B SURFACE ANTIGEN NEGATIVE
[2020-12-11] MEDS ORDERED: EPOETIN ALFA-EPBX 10,000 UNIT/ML VIAL SUBCUT SCH (21:00)
[2020-12-11] MEDS: DIPHENHYDRAMINE 50MG/ML VIAL IV PRN (21:59)
[2020-12-12] VITALS: BP 112/57
== END 2020-12-12 03:40 | disposition home or self-care (01) | DRG 673 ==
LOC: ER 10:13 → MICUSO 11:43 → EDBEDREQ 11:45 → 7EST 19:49
PROVIDERS: ADMIT Family Medicine; ATTEND Family Medicine
PROC: 5A1D70Z Performance of Urinary Filtration, Intermittent, Less than 6 Hours Per Day (ICD-10-PCS; 2020-12-04)
PROC: 5A1D70Z Performance of Urinary Filtration, Intermittent, Less than 6 Hours Per Day (ICD-10-PCS; 2020-12-05)
PROC: 0JBQ0ZZ Excision of Right Foot Subcutaneous Tissue and Fascia, Open Approach (ICD-10-PCS; principal; 2020-12-06)
PROC: 0J2TXYZ Change Other Device in Trunk Subcutaneous Tissue and Fascia, External Approach (ICD-10-PCS; 2020-12-06)
PROC: 5A1D70Z Performance of Urinary Filtration, Intermittent, Less than 6 Hours Per Day (ICD-10-PCS; 2020-12-07)
PROC: 0JBQ0ZZ Excision of Right Foot Subcutaneous Tissue and Fascia, Open Approach (ICD-10-PCS; 2020-12-09)
PROC: 5A1D70Z Performance of Urinary Filtration, Intermittent, Less than 6 Hours Per Day (ICD-10-PCS; 2020-12-09)
PROC: 5A1D70Z Performance of Urinary Filtration, Intermittent, Less than 6 Hours Per Day (ICD-10-PCS; 2020-12-10)
PROC: 5A1D70Z Performance of Urinary Filtration, Intermittent, Less than 6 Hours Per Day (ICD-10-PCS; 2020-12-11)
DX: T82.41XA Breakdown (mechanical) of vascular dialysis catheter, initial encounter (principal); N18.6 End stage renal disease; I50.33 Acute on chronic diastolic (congestive) heart failure; T81.31XA Disruption of external operation (surgical) wound, not elsewhere classified, initial encounter; I13.2 Hypertensive heart and chronic kidney disease with heart failure and with stage 5 chronic kidney disease, or end stage renal disease; N25.81 Secondary hyperparathyroidism of renal origin; E46 Unspecified protein-calorie malnutrition; Z68.41 Body mass index [BMI] 40.0-44.9, adult; I82.412 Acute embolism and thrombosis of left femoral vein; I82.4Y2 Acute embolism and thrombosis of unspecified deep veins of left proximal lower extremity; J44.9 Chronic obstructive pulmonary disease, unspecified; G20 Parkinson's disease; E87.5 Hyperkalemia; I73.9 Peripheral vascular disease, unspecified; E83.51 Hypocalcemia; G40.909 Epilepsy, unspecified, not intractable, without status epilepticus; D63.8 Anemia in other chronic diseases classified elsewhere; I95.89 Other hypotension; G89.4 Chronic pain syndrome; M19.90 Unspecified osteoarthritis, unspecified site; E66.09 Other obesity due to excess calories; Y84.8 Other medical procedures as the cause of abnormal reaction of the patient, or of later complication, without mention of misadventure at the time of the procedure; Z91.15 Patient's noncompliance with renal dialysis; Y92.89 Other specified places as the place of occurrence of the external cause; Z86.718 Personal history of other venous thrombosis and embolism; Z99.2 Dependence on renal dialysis; Z89.421 Acquired absence of other right toe(s); Z20.822 Contact with and (suspected) exposure to COVID-19
CPT/HCPCS: 36415; 36581; 71045; 77001; 80048; 80053; 80061; 80202; 82962; 85025; 85027; 86705; 86709; 86803; 87340; 87426; 93922; 93971; 94644; 99152; 99153; 99291; C1750; C1769; C1893; J0610; J0690; J0885; J1200; J1644; J1815; J1885; J1940; J2270; J2405; J2997; J3010; J3370; J3490; J7040; J7060; Q9967; G0500